=== PATIENT | male | born 1955 | race Caucasian/White ===

== ENCOUNTER 2016-07-21 15:00 | Inpatient (IN) | payer OTHER ==
--- NOTE | 2016-07-21 15:03 | EDPHY ---
HPI/HX/ROS/PE/MDM Narrative: CHIEF COMPLAINT: Seizure, AMS, left-sided weakness. HPI: The patient is a 61-year-old male who presents via EMS for AMS, seizure, and left-sided weakness. Per EMS he developed intermittent expressive aphasia and was taken to Urgent Care by his . In the lobby of Urgent Care he seized and fell. It is unknown if he struck his head. Upon waking he had left-sided weakness and EMS was notified. He has been mostly unresponsive for EMS and intermittently combative. History extremely limited due to AMS. REVIEW OF SYSTEMS: History limited due to patient's clinical condition. PMH: Unknown. SOCIAL HISTORY: . PHYSICAL EXAM: General: Patient is somnolent but arousable to loud voice. ENT: Eyes are normal to inspection. ENT inspection normal. Pupils 4mm and reactive bilaterally. Neck: Normal inspection. Full range of motion. Respiratory: No respiratory distress. Breath sounds normal bilaterally. Cardiovascular: Regular rate and rhythm. Strong peripheral pulses. Abdomen: The abdomen is nontender to palpation. There are no peritoneal signs. There are normal bowel sounds. Back: Normal to inspection. No tenderness to palpation. Skin: Normal color. No rash. Warm and dry. Extremities: Normal appearance. No signs of trauma. Neuro: Somnolent, no gross motor deficitis. Portions of this note were transcribed by an ED scribe. I personally performed the history, physical exam, and medical decision making; and confirm the accuracy of the information in the transcribed note. ED Course: I met EMS on arrival and obtained a report from the concrete pipe plant supervisor. The patient arrived with stable vitals as a stroke alert but was uncooperative and mostly unresponsive on arrival. Given numerous aspects of the history provided by EMS, I canceled the stroke alert. The patient was immediately sent to CT for head imaging. I consulted with the radiologist Dr. Combs immediately after imaging. He reported a large brain tumor present. On reexamination of the patient his is present. She reports that the patient has had transient slurred speech over the past 2 weeks. When she returned from errands this morning he could not move the right side of his face. He did have a seizure when they arrived at Urgent Care. The patient is responsive to painful stimuli at this time but otherwise cannot answer questions well. An IV was established and labs ordered. Chest x-ray, EKG obtained. 1520: Consulted with Dr. Saleh, neurosurgery. He will consult with the patient in the emergency department. 1622: Consulted with Dr. Saleh, neurosurgery, after his assessment. He will admit the patient. Study: CT of the head. Indication: AMS. Results: Left parietal region mass, presumably neoplasm with mild associated mass effect and no evidence for hemorrhage. The study was read by the radiologist, Dr. Combs. I viewed the images myself on the PACS system. EKG was ordered and interpreted by myself. Please see Verastem system for official reading. MDM: This patient presents with altered mental status status post seizure with report of several weeks of neurologic symptoms. Unfortunately, he is found to have a fairly large tumor on noncontrast head CT. He remained hemodynamically stable with a patent airway throughout his emergency department stay. Further care deferred to Neurosurgery team. I personally spent a total of 45 minutes of critical care time in obtaining history, performing a physical exam, bedside monitoring of interventions, collecting and interpreting tests and discussion with consultants but not including time spent performing procedures. This time was exclusive of any involvement by Physician Echometer Engineer. Organ system(s) at risk include: neurologic. Given the unstable nature of patient's presentation, I followed the patient to the CT scanner and remained there throughout the imaging process. - Data Points Laboratory Results: Laboratory Results 07/21/16 15:10 07/21/16 15:10 07/21/16 07/21/16 07/21/16 15:10 15:10 15:10 WBC 9.04 10^3/uL 10^3/uL (3.80-9.50) RBC 4.90 10^6/uL 10^6/uL (4.40-6.38) Hgb 15.8 g/dL g/dL (13.7-17.5) POC Hgb Hct 45.8 % % (40.0-51.0) POC Hct MCV 93.5 fL fL (81.5-99.8) MCH 32.2 pg pg (27.9-34.1) MCHC 34.5 g/dL g/dL (32.4-36.7) RDW 12.3 % % (11.5-15.2) Plt Count 254 10^3/uL 10^3/uL (150-400) MPV 10.1 fL fL (8.7-11.7) Neut % (Auto) 55.1 % % (39.3-74.2) Lymph % (Auto) 34.4 % % (15.0-45.0) [place] % (Auto) 8.3 % % (4.5-13.0) Eos % (Auto) 1.5 % % (0.6-7.6) Baso % (Auto) 0.4 % % (0.3-1.7) Nucleat RBC Rel Count 0.0 % % (0.0-0.2) Absolute Neuts (auto) 4.97 10^3/uL 10^3/uL (1.70-6.50) Absolute Lymphs (auto) 3.11 10^3/uL H 10^3/uL (1.00-3.00) Absolute Monos (auto) 0.75 10^3/uL 10^3/uL (0.30-0.80) Absolute Eos (auto) 0.14 10^3/uL 10^3/uL (0.03-0.40) Absolute Basos (auto) 0.04 10^3/uL 10^3/uL (0.02-0.10) Absolute Nucleated RBC 0.00 10^3/uL 10^3/uL (0-0.01) Immature Gran % 0.3 % % (0.0-1.1) Immature Gran # 0.03 10^3/uL 10^3/uL (0.00-0.10) PT 15.5 SEC H SEC (12.0-15.0) INR 1.23 H (0.83-1.16) APTT 25.2 SEC SEC (23.0-38.0) POC Sodium Sodium 143 mEq/L mEq/L (134-144) POC Potassium Potassium 4.1 mEq/L mEq/L (3.5-5.2) POC Chloride Chloride 103 mEq/L mEq/L (97-110) Carbon Dioxide 12 mEq/l L mEq/l (22-31) Anion Gap 28 mEq/L H mEq/L (8-16) POC BUN BUN 19 mg/dL mg/dL (7-23) Creatinine 1.1 mg/dL mg/dL (0.7-1.3) POC Creatinine Estimated GFR > 60 Glucose 158 mg/dL H mg/dL (70-100) POC Glucose Calcium 9.7 mg/dL mg/dL (8.5-10.4) Troponin I < 0.012 ng/mL ng/mL (0-0.034) 07/21/16 15:07 WBC RBC Hgb POC Hgb 16.0 gm/dL gm/dL (14.5-17.3) Hct POC Hct 47 % % (42.8-50.6) MCV MCH MCHC RDW Plt Count MPV Neut % (Auto) Lymph % (Auto) [place] % (Auto) Eos % (Auto) Baso % (Auto) Nucleat RBC Rel Count Absolute Neuts (auto) Absolute Lymphs (auto) Absolute Monos (auto) Absolute Eos (auto) Absolute Basos (auto) Absolute Nucleated RBC Immature Gran % Immature Gran # PT INR APTT POC Sodium 142 mEq/L mEq/L (134-144) Sodium POC Potassium 3.6 mEq/L mEq/L (3.3-5.0) Potassium POC Chloride 105 mEq/L mEq/L (96-108) Chloride Carbon Dioxide Anion Gap POC BUN 22 mg/dL mg/dL (7-23) BUN Creatinine POC Creatinine 1.1 mg/dL mg/dL (0.8-1.5) Estimated GFR Glucose POC Glucose 160 mg/dL H mg/dL (70-100) Calcium Troponin I Point of Care Test Results: 07/21/16 15:07 POC Sodium 142 POC Potassium 3.6 POC Chloride 105 POC BUN 22 POC Creatinine 1.1 POC Glucose 160 H General Initial Vital Signs: Initial Vital Signs Temperature (C) 36.7 C 07/21/16 15:00 Heart Rate 86 07/21/16 15:00 Respiratory Rate 16 07/21/16 15:00 Blood Pressure 110/75 07/21/16 15:00 O2 Sat (%) 97 07/21/16 15:00 O2 (L/minute) 2 Allergies/Adverse Reactions: No Known Allergies Allergy (Unverified 07/21/16 15:31) Home Medications: Medication Instructions Recorded Gabapentin [Neurontin 300 MG (*)] 300 mg PO TID 07/21/16 Propranolol HCl [Inderal 10mg (*)] 10 mg PO TID 07/21/16 busPIRone [Buspar (*)] 10 mg PO TID 07/21/16 Departure - Departure Disposition: [facility] Acute Clinical Impression: Brain tumor, Seizure Altered mental status Qualifiers: Altered mental status type: unspecified Qualified Code(s): R41.82 - Altered mental status, unspecified Condition: Fair Report Scribed for: Regino Hogue Report Scribed by: Cj Wan Date of Report: 07/21/16 Time of Report: 15:15
[2016-07-21 15:25] LABS: % IMMATURE GRANULYOCYTES 0.3 % (0.0-1.1); ABSOLUTE IMMATURE GRANULOCYTES 0.03 10^3/uL (0.00-0.10); ADD DIFF? NO; ADD MORPH? NO; ATYPICAL LYMPHOCYTE FLAG 0 (0-99); FRAGMENT RBC FLAG 0 (0-99); HEMATOCRIT 45.8 % (40.0-51.0); HEMOGLOBIN 15.8 g/dL (13.7-17.5); LEFT SHIFT FLG 0 (0-99); LIPEMIA HEMOLYSIS FLAG 90 (0-99); MEAN CELL HEMOGLOBIN 32.2 pg (27.9-34.1); MEAN CELL HEMOGLOBIN CONCENTR. 34.5 g/dL (32.4-36.7); MEAN CELL VOLUME 93.5 fL (81.5-99.8); MEAN PLATELET VOLUME 10.1 fL (8.7-11.7); PLATELET CLUMPS FLAG 0 (0-99); PLATELET COUNT 254 10^3/uL (150-400); RED CELL DISTRIBUTION WIDTH 12.3 % (11.5-15.2)
[2016-07-21 15:26] LABS: ADD SCAN? NO
--- NOTE | 2016-07-21 15:33 | CPEKG ---
Heart Rate: 85 RR Interval: 706 P-R Interval: 168 QRSD Interval: 92 QT Interval: 380 QTC Interval: 452 P Armbrust: 76 QRS Armbrust: 61 T Wave Armbrust: 63 EKG Severity - NORMAL ECG - EKG Impression: SINUS RHYTHM EKG Impression: Agree with above Electronically Signed By: Avelino Du 23-Jul-2016 18:15:38
[2016-07-21 15:37] LABS: APTT 25.2 SEC (23.0-38.0); INR 1.23 (0.83-1.16); PROTIME(PATIENT) 15.5 SEC (12.0-15.0)
[2016-07-21 15:40] LABS: ANION GAP 28 mEq/L (8-16); CALCIUM 9.7 mg/dL (8.5-10.4); CARBON DIOXIDE 12 mEq/l (22-31); CHLORIDE 103 mEq/L (97-110); CREATININE 1.1 mg/dL (0.7-1.3); GLOMERULAR FILTRATION RATE > 60; GLUCOSE 158 mg/dL (70-100); POTASSIUM 4.1 mEq/L (3.5-5.2); SODIUM 143 mEq/L (134-144)
[2016-07-21 15:52] LABS: TROPONIN I < 0.012 ng/mL (0-0.034)
[2016-07-21] MEDS ORDERED: MAGNESIUM HYDROXIDE 30 ML UDCUP PO PRN (16:03)
[2016-07-21] MEDS ORDERED: ONDANSETRON 4 MG/2 ML VIAL IVP PRN (16:03)
[2016-07-21] MEDS ORDERED: LACTULOSE 20 GM/30 ML UDCUP PO PRN (16:03)
[2016-07-21] MEDS ORDERED: POLYETHYLENE GLYCOL 3350 17 GM PKT PO PRN (16:03)
[2016-07-21] MEDS ORDERED: ACETAMINOPHEN 325 MG TAB PO PRN (16:03)
[2016-07-21] MEDS ORDERED: MAG HYDROX/AL HYDROX/SIMETH 30 ML UDCUP PO PRN (16:03)
[2016-07-21] MEDS ORDERED: BISACODYL 10 MG SUPP PR PRN (16:03)
[2016-07-21] MEDS ORDERED: diphenhydrAMINE 25 MG CAP PO PRN (16:03)
[2016-07-21] MEDS ORDERED: DEXAMETHASONE 10 MG/ML VIAL IVP ONE (16:21)
--- NOTE | 2016-07-21 16:44 | GHP ---
[f rep st] HISTORY AND PHYSICAL DATE OF ADMISSION: 07/21/2016 REASON FOR ADMISSION: New diagnosis of brain tumor. The patient was seen evaluated approximately 4 :00 p.m. on 07/21/2016 in the [facility] Emergency Department. HPI: The patient is a 61-year-old man who presented via EMS for some altered mental status, possibl y a seizure, and supposed left-sided weakness. He apparently over the last month has been developin g worsening expressive aphasia, which has been markedly worse over the past week. [facility] . He may have had a seizure in the lobby and fell down, and had a loss of consciousness. He did seem to have some postictal confusion and combativeness. He also may have had some left-sided weakness at that time per EMS. The remainder of his history was difficult to a scertain at that time. Now when I am seeing him, he does not have any complaints of headaches. He does clearly have expressive aphasia and some dysarthria with mild right-sided drift, but otherwise no left-sided weakness. He has no further complaints. [facility], which shows a mass with surrounding vasogenic edema in the left frontal region near Broca's area . No contrast scans have been done yet. There is very minimal midline shift, but there is signific ant mass effect from the mass and vasogenic edema. REVIEW OF SYSTEMS: A 10-point review of systems is negative other than that described above in the HPI. Specifically, he denies fevers, chills, nausea, vomiting, shortness of breath, abdominal pain. PAST MEDICAL HISTORY: Anxiety. PAST SURGICAL HISTORY: None. SOCIAL HISTORY: The patient is . He is a lifelong nonsmoker. Drinks only social alcohol an d denies other drug use. FAMILY HISTORY: Negative for any brain malignancy or other cancer. PHYSICAL EXAM: VITAL SIGNS: Currently, he is afebrile with a temperature of 36.7, heart rate is 86 , respiratory rate 16, blood pressure is 110/75, sats are 97% on room air. NEURO: He is awake, gypsy rt, and oriented x3. He does have expressive aphasia with some degree of difficulty with repetition as well. He does have significant word-finding difficulties, but follows commands briskly. His pu pils are equal, round, reactive to light. His extraocular movements are intact. Face is symmetric. His tongue is midline. He has 5/5 strength at the deltoids, biceps, triceps, coffee urn attendant and finger exte nsion bilaterally. There is a slight right-sided pronator drift. He has 5/5 strength at the hip fl exors, knee flexors, extensors and plantar and dorsiflexion bilaterally. His sensation is intact to light touch and pain. Deep tendon reflexes are normal. CHEST: Clear to auscultation bilaterally. HEART: Regular rate and rhythm. No rubs, murmurs, or gallops. ABDOMEN: Soft, nontender, nondis tended with active bowel sounds in all 4 quadrants. IMAGING REVIEW: CT reveals a mass measuring what appears to be roughly about 3.5 cm in the left fro ntal region, with some surrounding vasogenic edema. There is no significant midline shift. No sign of hemorrhage. LAB REVIEW: White count is 9.0, hemoglobin 15.8, hematocrit is 45.8, platelet count is 254,000, sod ium is 143, potassium 4.1, BUN is 19, creatinine 1.1, glucose is 158. PT is 15.5, INR 1.2, PTT is 2 5.2. 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 He may have had a seizure at Urgent Care, an d worsening aphasia over the past month. CT shows a mass lesion in the left frontal region near Bro ca's area with some surrounding vasogenic edema and mass effect. This is presumably a neoplasm, and I explained this to the family. Our next step will be to get an MRI with contrast and stealth prot ocol to better see the anatomy and determine what kind of tumor this may be. After that, we can dec hope about further metastatic workup with a CT chest, abdomen, pelvis if this appears to be necessary . He is going to be given 10 mg of Decadron in the Emergency Department, followed by 4 q.6h IV for the vasogenic edema. We will maintain him on Keppra 1 g twice daily. I explained to them that the likely next steps would include biopsy and/or resection, depending on the results of the MRI scan. I do not think it is likely to be infectious in origin, but we will continue to monitor his vital si gns for any signs of fevers or infection. I explained all this to the family, and they are in agree ment with this assessment and plan. /[id number]/MODL
[2016-07-21] MEDS ORDERED: GADOBUTROL 10 ML VIAL IVP ONE (16:58)
[2016-07-21] MEDS ORDERED: *PHM DO NOT USE-DEXAMETHASONE 0.2 MG/ML IV PED/NEWBORN SYR IV SCH (18:00)
[2016-07-21] MEDS: DEXAMETHASONE 4 MG/ML VIAL IVP SCH ×2 (19:15→23:34)
[2016-07-21] MEDS ORDERED: levETIRAcetam 500 MG in NS 100 ML IV SCH (21:00)
[2016-07-21] MEDS: NS W/ 20 KCl/L 1,000 ML IV SCH (21:40)
[2016-07-21] MEDS: levETIRAcetam 1,000 MG in NS 100 ML IV SCH (21:40)
[2016-07-21] MEDS: GABAPENTIN 300 MG CAP PO SCH (21:43)
[2016-07-21] MEDS: PROPRANOLOL HCL 10 MG TAB PO SCH (21:43)
[2016-07-21] MEDS: HEPARIN 5,000 UNIT/0.5 ML SYR SC SCH (21:45)
[2016-07-21] MEDS: SENNOSIDES/DOCUSATE SODIUM TAB PO SCH (23:26)
[2016-07-21] MEDS: busPIRone 10 MG TAB PO SCH (23:34)
[2016-07-22] MEDS: DEXAMETHASONE 4 MG/ML VIAL IVP SCH ×4 (05:48→23:39)
--- NOTE | 2016-07-22 09:20 | NEUSURGPN ---
Assessment/Plan: 61 yo male presenting with AMS and aphasia found to have left frontal mass with surrounding edema. -MRI w and wo contrast performed and shows left frontal heterogeneous mass with surrounding edema consistent with possible GBM. -Dr. Saleh and I will speak wtih the patient and his about these findings later this afternoon as well as possible surgical plans for tomorrow. Surgery would involve an awake craniotomy due to the location of this tumor and close proximity to Broca's. -Tentatively on the schedule for 7:15 tomorrow but need to speak with anesthesia regarding needs for awake procedure. 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 Does not remember meeting Dr. Saleh or their discussion. Objective: NAD, VSS Speech- clear and fluent most of the time, speech still sometimes garbled/less clear. Mental status-oriented to person, time, some confusion about recent events and has some short term memory issues CN II-XII grossly intact No droop Negative pronator drift BUE/BLE 08/30= - Physician Discussed Patient with Dr.: Saleh Neurosurgery Physical Exam - Vitals, I&O, Labs I and O 07/21/16 07/22/16 07/23/16 05:59 05:59 05:59 Intake Total 1038 Output Total 400 Balance 638 Weight 84 kg Intake: Oral (ml) 100 IV Infused (ml) 938 NS W/ 20 KCl/L 1,000 ml @ 788 100 mls/hr IV CONT LUCIANO Rx#:[id number] levETIRAcetam 1,000 mg In 100 Ns 100 ml @ 420 mls/hr IV BID LUCIANO Rx#:[id number] Output: Urine (ml) 400 Toilet 400 Vital Signs Temp Pulse Resp BP Pulse Ox 37.1 C 71 16 141/79 H 95 07/22/16 08:00 07/22/16 08:00 07/22/16 08:00 07/22/16 08:00 07/22/16 08:00 ICD10 Worksheet Patient Problems: Problems Problem Status Onset Altered mental status Acute Brain tumor Acute Seizure Acute
[2016-07-22] MEDS: levETIRAcetam 1,000 MG in NS 100 ML IV SCH ×2 (09:29→20:03)
[2016-07-22] MEDS: HEPARIN 5,000 UNIT/0.5 ML SYR SC SCH ×2 (09:30→20:03)
[2016-07-22] MEDS: busPIRone 10 MG TAB PO SCH ×3 (09:30→20:04)
[2016-07-22] MEDS: NS W/ 20 KCl/L 1,000 ML IV SCH (09:30)
[2016-07-22] MEDS: GABAPENTIN 300 MG CAP PO SCH ×3 (09:30→20:04)
[2016-07-22] MEDS: SENNOSIDES/DOCUSATE SODIUM TAB PO SCH ×2 (09:30→20:19)
[2016-07-22] MEDS: PROPRANOLOL HCL 10 MG TAB PO SCH ×3 (09:31→20:04)
[2016-07-22] MEDS: LORazepam 1 MG TAB PO PRN (16:30)
[2016-07-22] MEDS: ALPRAZolam 0.5 MG TAB PO PRN (20:03)
[2016-07-23] MEDS: DEXAMETHASONE 4 MG/ML VIAL IVP SCH ×3 (06:05→18:26)
--- NOTE | 2016-07-23 09:15 | NEUSURGPN ---
Assessment/Plan: 61 yo male presenting with AMS and aphasia found to have left frontal mass with surrounding edema. -MRI w and wo contrast performed and shows left frontal heterogeneous mass with surrounding edema consistent with possible GBM. -Dr. Saleh and I had a long discussion regarding MRI findings, probable prognosis and treatment options. Patient leaning towards surgery which would involve awake craniotomy for motor and speech mapping due to tumor location. -Surgery time held for tomorrow at 0915 at [facility] but patient may want t go home for a few days and do it next week. Will look at OR times available for this and would need to make sure surgery gets approved by insurance as outpatient. -If patient decides on surgery tomorrow, will need to be NPO after midnight, preop orders entered and consents signed -Oncology consulted and Dr. 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 Saleh as well this morning Subjective: Patient states speech is continuing to get better. Is leaning towards surgical option for treatment. Denies any weakness. Objective: NAD, VSS Speech- clear and fluent most of the time, speech still sometimes garbled/less clear. Mental status-oriented to person, time, some confusion about recent events and has some short term memory issues CN II-XII grossly intact No droop Negative pronator drift BUE/BLE 5/5= Urinary Catheter in Place: No - Physician Discussed Patient with Dr.: Saleh Patient Seen by Dr.: Saleh Neurosurgery Physical Exam - Vitals, I&O, Labs I and O 07/22/16 07/23/16 07/24/16 05:59 05:59 05:59 Intake Total 1038 1000 Output Total 400 Balance 638 1000 Weight 84 kg Intake: Oral (ml) 100 IV Infused (ml) 938 1000 NS W/ 20 KCl/L 1,000 ml @ 788 900 100 mls/hr IV CONT LUCIANO Rx#:[id number] levETIRAcetam 1,000 mg In 100 100 Ns 100 ml @ 420 mls/hr IV BID LUCIANO Rx#:[id number] Output: Urine (ml) 400 Toilet 400 Other: Number of Voids Toilet 1 Vital Signs Temp Pulse Resp BP Pulse Ox 36.9 C 56 L 18 136/67 H 97 07/23/16 08:15 07/23/16 08:15 07/23/16 08:15 07/23/16 08:15 07/23/16 08:15 ICD10 Worksheet Patient Problems: Problems Problem Status Onset Altered mental status Acute Brain tumor Acute Seizure Acute
[2016-07-23] MEDS: levETIRAcetam 1,000 MG in NS 100 ML IV SCH ×2 (10:08→20:15)
[2016-07-23] MEDS: busPIRone 10 MG TAB PO SCH ×3 (10:13→20:16)
[2016-07-23] MEDS: SENNOSIDES/DOCUSATE SODIUM TAB PO SCH ×2 (10:13→21:04)
[2016-07-23] MEDS: HEPARIN 5,000 UNIT/0.5 ML SYR SC SCH (10:13)
[2016-07-23] MEDS: GABAPENTIN 300 MG CAP PO SCH ×3 (10:13→20:15)
[2016-07-23] MEDS: PROPRANOLOL HCL 10 MG TAB PO SCH ×3 (10:15→20:15)
[2016-07-23] MEDS: ALPRAZolam 0.5 MG TAB PO PRN ×2 (14:39→20:16)
--- NOTE | 2016-07-23 14:47 | GCON ---
[f rep st] CONSULTATION MEDICAL ONCOLOGY CONSULTATION REPORT. DATE OF CONSULTATION: 07/23/2016 REFERRING PHYSICIAN: Matteo Saleh MD REASON FOR CONSULTATION: A gentleman with newly diagnosed left frontal mass consistent with high-gr yo brain tumor at initial presentation. Information supplied by patient and his at the bedside. HISTORY OF PRESENT ILLNESS: The patient is a pleasant 61-year-old white male with no previous histo ry of malignancy who presented over the past month or so with mild subtle aphasia on a temporary bas is that gradually became more prominent and developed into ongoing slurred speech. He also noted so me right cheek numbness about 8 days ago, some focal weakness, and seizure activity leading to hospi talization on July 20. He was hospitalized by the emergency department of [facility], and an initial head CT in the emergency department showed a left frontal tumor mass co nsistent with a primary brain tumor. He has had a subsequent brain MRI which shows the appearance o f a brain tumor in the left frontal region measuring 5.8 x 3.8 x 3.4 cm with a moderate amount of funk rrounding vasogenic edema and a 4-5 mm [id number] shift. The tumor is in the area near Broca are a. The patient has been placed on anticonvulsant therapy and steroids and has been seen by the neur osurgical service with advice provided concerning neurosurgical resection of the mass and/or biopsy depending upon neurosurgical findings, including mapping of the tumor's local at time of surgery. The patient is now seen preoperatively with his regarding the medical oncology perspective of t his tumor. There is no family history of malignancy in this patient. He has had no history of brain injury. The patient has maintained good health, and he has a remote history of alcohol abuse, resolved in 15 07, with now just occasional and modest alcohol intake in the past several years. 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 ALLERGIES: None reported. SOCIAL HISTORY: The patient is to his , and he was born in [facility] and moved to [facility] 40 years ago. He and his have a single child, a 24-year-old daughter who lives in the [place] area. 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 There is no history of tobacco use. PAST SURGICAL HISTORY: Bilateral herniorrhaphy at approximately age 3. PAST MEDICAL HISTORY: No chronic medical conditions. FAMILY HISTORY: As noted reveals no history of malignancy. REVIEW OF SYSTEMS: As noted above. 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 Otherwise, he has had no cardiac, pulmonary, infectiou s, vascular, thrombotic, hematologic, hemostatic, lymphatic, GI, , or skeletal symptoms with the e xception of the above presentation. PHYSICAL EXAMINATION: GENERAL: The patient is seen with his at the bedside. He is lying at a 20-degree angle. He is alert, comfortable, lucid, and coherent. His speech is slightly slurred, b ut he is able to express complicated concepts easily and has intact cognitive abilities. He is movi ng all 4 extremities without difficulty. HEENT: No facial asymmetry. Sclerae anicteric. Oral muc sade intact. NECK: No adenopathy in the neck. LUNGS: Ibrahim clear. CARDIAC: Regular rhythm with out S3 or S4. ABDOMEN: Soft without tenderness, mass, or HSM. Bowel sounds normal. Abdomen nondi stended and nontender. EXTREMITIES: Without peripheral edema. SKIN: Intact. NEUROLOGIC: Reflex es are somewhat brisk on the left side. LABORATORY DATA: Sodium 143, CO2 12, potassium 4.2, BUN 19, creatinine 1.1, glucose 158. Platelet count 254, hemoglobin 15.8, white count 9.04. Chest x-ray shows no identified mass, effusion, or infiltrate. EKG shows no specific abnormality. IMPRESSION: Left frontal region brain tumor based upon MRI characteristics, presenting as a heterog eneous bilobed mass by imaging that has led to progressive aphasia and new onset seizure. COMMENTS: I have a prolonged conversation with the patient and his regarding his presentation, diagnosis, opportunity for first-line treatment with surgery and need for somewhat urgent neurosurg ical intervention. The possibility of significant improvement and prognosis has been reviewed today in our discussion. The patient is well aware that he could have significant permanent speech defic it and/or other deficits from surgery, but also understands that his prognosis is significantly impr omar with the attempt at near total or subtotal or total neurosurgical resection. The patient was informed that if this is a primary aggressive astrocytoma, as in a glioblastoma mult iforme, additional treatment would include radiation therapy after sufficient neurosurgical recovery , usually treated concomitantly with an oral chemotherapy agent called temozolomide. Other options may become more clear as the tumor characteristics are identified, including MGMT activity and tumor cytogenetics. This additional information may help to identify potential wheat combine driver mutations to be ut ilized for further treatment. The patient and his asked many relevant questions, and the patient expressed his desire to allo w optimal treatment outcome but expressed his concern with having a permanent end-of-life neurosurgi laurie deficit that he is reluctant to accept. He understands both the risks and benefits and is looki ng forward to moving on with neurosurgical intervention as soon as possible. Our service will follow during this hospitalization and to help coordinate postop treatment when dejah jagjit. /[id number]/MODL
[2016-07-24] MEDS: DEXAMETHASONE 4 MG/ML VIAL IVP SCH ×4 (00:05→18:58)
[2016-07-24] MEDS: ALPRAZolam 0.5 MG TAB PO PRN (04:54)
[2016-07-24] MEDS ORDERED: ceFAZolin 2 GM/DEXTROSE 100 ML IV ONE (07:00)
[2016-07-24] MEDS: levETIRAcetam 1,000 MG in NS 100 ML IV SCH ×2 (07:21→21:27)
[2016-07-24] MEDS ORDERED: THROMBIN (BOVINE) 5,000 UNIT VIAL TP ONE (07:31)
[2016-07-24] MEDS ORDERED: SURGIFLO MATRIX KIT WITH THROMBIN TP ONE ×2 (07:31→11:17)
[2016-07-24] MEDS ORDERED: AVITENE POWDER 1 GM JAR TP ONE (07:32)
[2016-07-24] MEDS ORDERED: BUPIVACAINE/EPI 0.25% 30 ML SDV ONE ×2 (07:32→09:33)
[2016-07-24] MEDS ORDERED: BACITRACIN 50,000 UNITS/10 ML SYR IRR ONE (07:33)
[2016-07-24] MEDS: PROPRANOLOL HCL 10 MG TAB PO SCH ×3 (08:29→21:28)
[2016-07-24] MEDS: busPIRone 10 MG TAB PO SCH ×3 (08:29→21:28)
[2016-07-24] MEDS: GABAPENTIN 300 MG CAP PO SCH ×3 (08:29→21:27)
[2016-07-24] MEDS: SENNOSIDES/DOCUSATE SODIUM TAB PO SCH ×2 (08:29→21:28)
[2016-07-24] MEDS ORDERED: GENTAMICIN SULFATE 80 MG/2 ML VIAL ONE (08:59)
[2016-07-24] MEDS ORDERED: LIDOCAINE 1% 30 ML SDV ONE (09:29)
[2016-07-24] MEDS ORDERED: MIDAZOLAM 2 MG/2 ML VIAL ONE (09:44)
[2016-07-24] MEDS ORDERED: fentaNYL 250 MCG/5 ML INJ ONE (09:46)
[2016-07-24] MEDS ORDERED: PROPOFOL/EMULSION 500 MG/50 ML BOTTLE IV ONE (09:46)
[2016-07-24] MEDS ORDERED: DEXMEDETOMIDINE HCL 200 MCG/2 ML VIAL IV ONE (09:50)
[2016-07-24] MEDS ORDERED: NS IV ONE (10:00)
[2016-07-24] MEDS ORDERED: FOSPHENYTOIN IV ONE (10:00)
[2016-07-24] MEDS ORDERED: SUGAMMADEX SODIUM 200 MG/2 ML VIAL IVP ONE (11:12)
[2016-07-24] MEDS ORDERED: epHEDrine SULFATE 10 MG/ML SYR ONE (11:13)
[2016-07-24] MEDS ORDERED: REMIFENTANIL HCL 1 MG VIAL ONE (11:20)
[2016-07-24] MEDS ORDERED: PROPOFOL 200 MG/20 ML VIAL ONE (12:26)
[2016-07-24] MEDS ORDERED: LABETALOL HCL 50 MG/10 ML SYR ONE (13:05)
[2016-07-24] MEDS ORDERED: fentaNYL 100 MCG/2 ML INJ ONE (13:18)
--- NOTE | 2016-07-24 13:51 | GOP ---
[f rep st] OPERATIVE REPORT DATE OF OPERATION: 07/24/2016 SURGEON: Matteo Saleh MD SOCIAL WORK PROFESSOR: Tena Cuellar, AVERY ANESTHESIA: General endotracheal plus local. 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 PROCEDURE PERFORMED: 1. Left frontal craniotomy for biopsy of brain tumor. 2. Aborted attempt for a gross total resection of left frontal brain tumor. 3. Intraoperative motor and speech mapping with awake craniotomy. 4. Stealth stereotactic neuronavigation for volumetric resection. 5. Use of the operating microscope. FINDINGS: Aborted craniotomy due to the patient's inability to tolerate the awake portion. SPECIMENS: Left frontal brain tumor for permanent pathology. ESTIMATED BLOOD LOSS: 50 cc. INDICATIONS: The patient is a 61-year-old man who presented with motor aphasia over the weekend. H is imaging showed a large contrast enhancing mass with central necrosis in the left frontal lobe anahi y near the Broca area and just anterior to his motor area. After much discussion, we decided to pro ceed with an awake craniotomy for resection of this tumor with speech and motor mapping. Much discu ssion was had with the patient regarding this awake craniotomy, and the potential pitfalls prior to the procedure. DESCRIPTION OF PROCEDURE: Informed consent was obtained from the patient. The patient was brought to the operating room, was placed in supine position on the operating table. A formal time-out was performed, identifying the patient by name, medical record number, and date of . Preoperative antibiotics were given. The endotracheal tube was placed, and general endotracheal anesthesia was s moothly induced. The patient's head was then placed in the Velasco pins, and a full block of the s upraorbital and temporal cutaneous nerves was done using a mixture 1:1 of 1% lidocaine and 0.25% Mar marco with epinephrine. More local anesthetic was placed to the site of the pins. The Stealth unit was then registered to the scalp using known surface landmarks and checked for accuracy. The Steal th was then used to plan a reverse question-shimon style craniotomy incision that spanned a segment la rger than the tumor for the intraoperative mapping. At this point, the head was then prepped and dr aped in the normal sterile fashion. Lidocaine was also injected in the site of the incision, and th e skin incision was then made using a 10 blade. The subcutaneous tissues were dissected using monop olar electrocautery, and Mika clips were placed for hemostasis. The temporalis fascia and muscle w as then opened in line with the incision, and a single myocutaneous flap was retracted anteriorly. The Stealth was again used to localize the area of the tumor and the surrounding tissues, and a larg e, roughly 8 x 5 cm, craniotomy flap was planned. 2 bur holes were placed, 1 anteriorly and 1 poste riorly, and then this was connected using a craniotome. Dural tack-up stitches were placed. All bl eeding was controlled with bipolar electrocautery and Gelfoam. At this point, the dura was opened i n a cruciate fashion, exposing the brain beneath. One discolored gyrus was mapped as the area that was coming to the surface, and this was confirmed with the Stealth. At this point, we then used a 4 contact strip electrode to map the motor cortex posteriorly using the phase reversal. We were able to get good signals. Next, we used bipolar stimulation and the EMG electrodes which had been place d preoperatively, to further map the motor cortex. We were able to get good signals, and the motor cortex we mapped was consistent with what we would have expected based on the imaging. Next, we beg an the process of waking the patient up for language mapping, and while he was breathing on his own and able to be extubated, he was moving all 4 extremities, but was not speaking. He then became olga lidia tated and removed himself from the pins by sitting up. His head was carefully supported, and the pi ns were removed. At this point, I had to have the anesthesiologist further sedate the patient becau se of his agitation. We placed the head then on a horseshoe headrest and discussed how to proceed. Given that he was no longer in pins and we no longer had stereotactic navigation, I did not feel th at it would be prudent to resect the tumor without the head being secured in an eloquent area such a s this. Therefore, we elected to abort the further attempt at the awake craniotomy with language ma pping at this point. The area that had been previously mapped where the tumor came to the surface I did make a small corticectomy and saw the tumor tissue beneath the surface. Several biopsies of th is were taken, and these were sent for permanent pathology. The bleeding at the biopsy site was con trolled with bipolar electrocautery, and a piece of Surgicel was placed over the biopsy site. At th is point, the wound was copiously irrigated using gentamicin irrigation. The dura was closed using interrupted 4-0 Nurolon. The craniotomy flap was plated back in place using Synthes titanium plates and screws. The wound was again copiously irrigated using bacitracin irrigation. The temporalis m uscle and fascia was closed using interrupted 2-0 Vicryl. The galea was closed using interrupted 2- 0 Vicryl. The skin was closed using a running 4-0 Monocryl. The patient was then awakened again in the operating room, where he was transferred to the PACU in stable condition. The pin sites were c hecked, and there was no laceration on the head. COUNTS: All sponge and needle counts were correct at the end of the case. COMPLICATIONS: The patient's inability to tolerate the language mapping portion of the procedure, c ausing of the further resection. DRAINS: There were no drains. /[id number]/MODL
[2016-07-24] MEDS ORDERED: METHOCARBAMOL 750 MG TAB PO PRN (14:13)
--- NOTE | 2016-07-24 14:29 | POSTOPPROG ---
Post Op Note Date of Operation: 07/24/16 Surgeon: Matteo Saleh Hvac Technician: Tena Cuellar Anesthesia: GET(General Endotracheal) Pre-op Diagnosis: Left frontal brain tumore Post-op Diagnosis: same Procedure: Left frontal craniotomy for brain biopsy Inf/Abcess present in the surg proc area at time of surgery?: No Depth: Organ Space SOAP Progress Note Assessment/Plan: S: Patient waking up in PACU, stable O: NAD, VSS Speech dysarthric still same as preop PERRL, EOMI CN II-XII grossly intact TABOR X4 Incision c/d/i-dressed with head wrap and baci A/P:61 yo male presenting with AMS and aphasia found to have left frontal mass with surrounding edema. S/p Left frontal craniotomy for biopsy. Was not able to get full resection today as patient was too agitated upon waking up for motor and speech mapping and pulled out of pins. 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 Saleh in PACU 07/24/16 14:23 Objective: Vital Signs Temp Pulse Resp BP Pulse Ox 36.4 C 59 L 10 L 143/81 H 92 07/24/16 13:21 07/24/16 13:21 07/24/16 13:55 07/24/16 13:52 07/24/16 13:52 07/23/16 07/24/16 07/25/16 05:59 05:59 05:59 Intake Total 1000 1800 Output Total 1250 Balance 1000 550 PT 15.5 SEC (12.0-15.0) H 07/21/16 15:10 INR 1.23 (0.83-1.16) H 07/21/16 15:10
[2016-07-24] MEDS: NS W/ 20 KCl/L 1,000 ML IV SCH ×2 (14:34)
[2016-07-24] MEDS: ALPRAZolam 0.25 MG TAB PO PRN (20:11)
[2016-07-25] MEDS: DEXAMETHASONE 4 MG/ML VIAL IVP SCH ×5 (00:16→21:11)
[2016-07-25] MEDS: NS W/ 20 KCl/L 1,000 ML IV SCH (00:20)
[2016-07-25] MEDS: LORazepam 1 MG TAB PO PRN ×2 (00:27→21:14)
[2016-07-25 05:14] LABS: HEMATOCRIT 37.7 % (40.0-51.0); HEMOGLOBIN 13.5 g/dL (13.7-17.5); MEAN CELL HEMOGLOBIN 32.2 pg (27.9-34.1); MEAN CELL HEMOGLOBIN CONCENTR. 35.8 g/dL (32.4-36.7); RED BLOOD CELL COUNT 4.19 10^6/uL (4.40-6.38); RED CELL DISTRIBUTION WIDTH 12.2 % (11.5-15.2)
[2016-07-25 05:36] LABS: ANION GAP 8 mEq/L (8-16); CALCIUM 8.7 mg/dL (8.5-10.4); CARBON DIOXIDE 24 mEq/l (22-31); CHLORIDE 109 mEq/L (97-110); CREATININE 0.7 mg/dL (0.7-1.3); GLOMERULAR FILTRATION RATE > 60; GLUCOSE 110 mg/dL (70-100); POTASSIUM 4.6 mEq/L (3.5-5.2); SODIUM 141 mEq/L (134-144)
[2016-07-25] MEDS: ALPRAZolam 0.25 MG TAB PO PRN ×3 (05:40→22:41)
[2016-07-25] MEDS: levETIRAcetam 1,000 MG in NS 100 ML IV SCH ×2 (09:24→21:15)
[2016-07-25] MEDS: busPIRone 10 MG TAB PO SCH ×3 (09:25→22:41)
[2016-07-25] MEDS: GABAPENTIN 300 MG CAP PO SCH ×3 (09:25→21:15)
[2016-07-25] MEDS: OXYCODONE/APAP 5/325 TAB PO PRN ×2 (09:25→16:19)
[2016-07-25] MEDS: PROPRANOLOL HCL 10 MG TAB PO SCH ×3 (10:22→22:43)
--- NOTE | 2016-07-25 12:32 | NEUSURGPN ---
Assessment/Plan: S: Patient is doing ok this morning, feels "foggy". No weakness in arms, legs. O: NAD, VSS Speech dysarthric still same as preop PERRL, EOMI CN II-XII grossly intact TABOR X4 Incision c/d/i-dressed with head wrap and baci A/P:61 yo male presenting with AMS and aphasia found to have left frontal mass with surrounding edema. S/p Left frontal craniotomy for biopsy. Was not able to get full resection as patient was too agitated upon waking up for motor and speech mapping and pulled out of pins. 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 Saleh 07/24/16 14:23 Catheter Insertion Date: 07/24/16 - Physician Discussed Patient with Dr.: Saleh Neurosurgery Physical Exam - Vitals, I&O, Labs I and O 07/24/16 07/25/16 07/26/16 05:59 05:59 05:59 Intake Total 3416 Output Total 2785 Balance 631 Intake: Oral (ml) 0 IV Intake (ml) 3016 IV Infused (ml) 400 NS W/ 20 KCl/L 1,000 ml @ 400 100 mls/hr IV CONT LUCIANO Rx#:[id number] Output: Urine (ml) 2735 Catheter 2735 Estimated Blood Loss (ml) 50 Other: Intake Quantity Yes Yes Sufficient Vital Signs Temp Pulse Resp BP Pulse Ox 36.8 C 100 25 H 129/61 H 91 L 07/25/16 01:00 07/25/16 10:00 07/25/16 10:00 07/25/16 10:00 07/25/16 10:00 Laboratory Results 07/25/16 05:00 07/25/16 05:00 ICD10 Worksheet Patient Problems: Problems Problem Status Onset Altered mental status Acute Brain tumor Acute Seizure Acute
[2016-07-25] MEDS: SENNOSIDES/DOCUSATE SODIUM TAB PO SCH ×2 (12:55→21:15)
[2016-07-26] MEDS: OXYCODONE/APAP 5/325 TAB PO PRN (05:13)
[2016-07-26] MEDS: DEXAMETHASONE 4 MG/ML VIAL IVP SCH (05:14)
[2016-07-26] MEDS: ALPRAZolam 0.25 MG TAB PO PRN (06:17)
[2016-07-26 07:29] VITALS: RESP 18
[2016-07-26] MEDS: GABAPENTIN 300 MG CAP PO SCH (08:25)
[2016-07-26] MEDS: SENNOSIDES/DOCUSATE SODIUM TAB PO SCH (08:25)
[2016-07-26] MEDS: busPIRone 10 MG TAB PO SCH (08:25)
--- NOTE | 2016-07-26 08:30 | NEUSURGPN ---
Assessment/Plan: A/P:61 yo male presenting with AMS and aphasia found to have left frontal mass with surrounding edema. S/p Left frontal craniotomy for biopsy. Was not able to get full resection as patient was too agitated upon waking up for motor and speech mapping and pulled out of pins. -Head CT was stable -Advance diet as tolerated -May go back in next Friday to finish resection- Dr Saleh spoke with patient yesterday. Plan to be seen in office Friday. -Pathology pending -Neuro checks -PT/OT/MALTSTER -Continue Keppra, increase decadron to 4mg Q6hrs -Can transfer to floor -Will need new Stealth MRI again if we go back next week -Likely DC home later today if cleared by therapies -Discussed with Dr. Saleh Subjective: Pt resting in bed, concerned about his speech. Has had some headache. Objective: AAOx3 NAD VSS Incision cdi MAEx4 Motor 5-/5 RUE/RLE, 5/5 LUE/LLE Some slurred/garbled speech slight R facial droop Urinary Catheter in Place: No Catheter Insertion Date: 07/24/16 - Physician Discussed Patient with Dr.: Saleh Neurosurgery Physical Exam - Vitals, I&O, Labs I and O 07/25/16 07/26/16 07/27/16 05:59 05:59 05:59 Intake Total 3416 300 Output Total 2785 850 Balance 631 -550 Intake: Oral (ml) 0 300 IV Intake (ml) 3016 IV Infused (ml) 400 NS W/ 20 KCl/L 1,000 ml @ 400 100 mls/hr IV CONT LUCIANO Rx#:[id number] Output: Urine (ml) 2735 850 Catheter 2735 Toilet 850 Estimated Blood Loss (ml) 50 Other: Intake Quantity Yes Sufficient Number of Voids Toilet 1 Bladder Scan Volume (ml) Catheter 632 Vital Signs Temp Pulse Resp BP Pulse Ox 36.6 C 58 L 18 139/78 H 95 07/26/16 07:24 07/26/16 07:24 07/26/16 07:24 07/26/16 07:24 07/26/16 07:24 Laboratory Results 07/25/16 05:00 07/25/16 05:00 ICD10 Worksheet Patient Problems: Problems Problem Status Onset Altered mental status Acute Brain tumor Acute Seizure Acute
[2016-07-26] MEDS ORDERED: levETIRAcetam 500 MG TAB PO SCH (09:00)
[2016-07-26] MEDS: PROPRANOLOL HCL 10 MG TAB PO SCH (10:45)
[2016-07-26] MEDS ORDERED: DEXAMETHASONE 4 MG TAB PO SCH (12:00)
[2016-07-26 12:04] VITALS: BP 108/68; PULSE 69; TEMP 98.9; O2SAT 96
== END 2016-07-26 15:04 | disposition home or self-care (01) | DRG 25 ==
LOC: EDBD 15:00 → F3N 17:18 → F2N 07-24 08:32 → F3N 07-25 14:58
PROVIDERS: ADMIT Neurological Surgery; ATTEND Neurological Surgery
DX: C71.1 Malignant neoplasm of frontal lobe (principal); R47.01 Aphasia; R47.1 Dysarthria and anarthria; G93.6 Cerebral edema; Z53.8 Procedure and treatment not carried out for other reasons; R45.1 Restlessness and agitation
CPT/HCPCS: 82947-QW; 92507-GN; 92523-GN; 92610-GN; 97161-GP; 97165-GO; A9585; C1713; J0690; J1100; J1953; J2250; J2704; J3010; Q2009

== ENCOUNTER 2016-08-08 08:48 | Inpatient (IN) | payer OTHER ==
[~2016-08-08 08:48] MED LIST: ceFAZolin 2 GM/DEXTROSE 100 ML IV ONE
[2016-08-08] MEDS ORDERED: LIDOCAINE 1% 5 ML SDV ONE (09:28)
[2016-08-08] MEDS ORDERED: GADOBUTROL 10 ML VIAL IVP ONE (09:36)
[2016-08-08] MEDS ORDERED: MANNITOL 20% 100 GM/500 ML BAG IV ONE (10:22)
[2016-08-08] MEDS ORDERED: AVITENE POWDER 1 GM JAR TP ONE (10:22)
[2016-08-08] MEDS ORDERED: THROMBIN (BOVINE) 20,000 UNIT VIAL TP ONE (10:22)
[2016-08-08] MEDS ORDERED: BACITRACIN 50,000 UNITS/10 ML SYR IRR ONE (10:23)
[2016-08-08] MEDS ORDERED: BUPIVACAINE/EPI 0.25% 30 ML SDV ONE (10:23)
[2016-08-08] MEDS ORDERED: GENTAMICIN SULFATE 80 MG/2 ML VIAL ONE (10:23)
[2016-08-08] MEDS ORDERED: CEFAZOLIN 2 GM/DEXTROSE/100 ML BAG IV ONE (11:07)
[2016-08-08] MEDS ORDERED: REMIFENTANIL HCL 1 MG VIAL ONE (11:28)
[2016-08-08] MEDS ORDERED: PROPOFOL/EMULSION 500 MG/50 ML BOTTLE IV ONE (11:28)
[2016-08-08] MEDS ORDERED: LIDOCAINE 1% 30 ML SDV ONE (11:50)
[2016-08-08] MEDS ORDERED: BUPIVACAINE/EPI 0.5% 30 ML SDV ONE (11:50)
[2016-08-08] MEDS ORDERED: FOSPHENYTOIN IV ONE (12:00)
[2016-08-08] MEDS ORDERED: levETIRAcetam 1,000 MG in NS 100 ML IV ONE (12:00)
[2016-08-08] MEDS ORDERED: NS IV ONE (12:00)
[2016-08-08] MEDS ORDERED: fentaNYL 100 MCG/2 ML INJ ONE (16:31)
[2016-08-08] MEDS ORDERED: ONDANSETRON 4 MG/2 ML VIAL IVP PRN (16:38)
[2016-08-08] MEDS ORDERED: METHOCARBAMOL 750 MG TAB PO PRN (16:38)
[2016-08-08] MEDS ORDERED: ONDANSETRON DISINTEGRATING 4 MG TAB PO PRN (16:38)
[2016-08-08] MEDS ORDERED: LACTULOSE 20 GM/30 ML UDCUP PO PRN (16:38)
[2016-08-08] MEDS ORDERED: niCARdipine/NACL 200 ML IV PRN (16:38)
[2016-08-08] MEDS ORDERED: BISACODYL 10 MG SUPP PR PRN (16:38)
[2016-08-08] MEDS ORDERED: DIAZEPAM 5 MG TAB PO PRN (16:38)
[2016-08-08] MEDS ORDERED: POLYETHYLENE GLYCOL 3350 17 GM PKT PO PRN (16:38)
[2016-08-08] MEDS ORDERED: MAGNESIUM HYDROXIDE 30 ML UDCUP PO PRN (16:38)
[2016-08-08] MEDS ORDERED: ACETAMINOPHEN 325 MG TAB PO PRN (16:38)
[2016-08-08] MEDS ORDERED: NS W/ 20 KCl/L 1,000 ML IV SCH (16:45)
--- NOTE | 2016-08-08 16:55 | POSTOPPROG ---
Post Op Note Date of Operation: 08/08/16 Surgeon: Matteo Saleh Marketing Analytics Analyst: Tena Cuellar Anesthesia: GET(General Endotracheal) Pre-op Diagnosis: Glioblastoma Post-op Diagnosis: Glioblastoma Procedure: Left sided awke craniotomy for resection of glioblastoma Findings: See operative report Inf/Abcess present in the surg proc area at time of surgery?: No Depth: Organ Space EBL: 50-100 Drains: Pavan Garsia SOAP Progress Note Assessment/Plan: Assessment: Plan: S: Patient waking up in PACU with headache as expected. 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 Saleh in PACU 08/08/16 16:50
[2016-08-08] MEDS ORDERED: *MD ORDERING ONLY-DEXAMETHASONE TAPER PO SCH (17:00)
--- NOTE | 2016-08-08 17:30 | GOP ---
[f rep st] OPERATIVE REPORT DATE OF OPERATION: 08/08/2016 SURGEON: Matteo Saleh MD GLASS BLOWER HELPER: AVERY Clarke PREOPERATIVE DIAGNOSIS: Left frontal glioblastoma. POSTOPERATIVE DIAGNOSIS: Left frontal glioblastoma. PROCEDURE PERFORMED: 1. Redo left frontal craniotomy. 2. Awake motor and speech mapping with intraoperative stimulation and monitoring as well as real-ti me motor monitoring during tumor resection. 3. Use of the operative microscope. 4. Microsurgical gross total resection of left frontal glioblastoma. 5. Stealth stereotactic neuronavigation for volumetric gross total resection. FINDINGS: Successful glioblastoma resection. SPECIMENS: Left frontal glioblastoma for permanent section. ESTIMATED BLOOD LOSS: Approximately 150 cc. INDICATIONS: The patient is a 61-year-old man who presented last week with some aphasia and dysarth awa. He was admitted to the hospital, and we made a first attempt with awake craniotomy for resecti on and biopsy of his tumor, approximately a week and a half ago. Unfortunately, at that time, duryusuf g the intraoperative wake-up portion, the patient became agitated and pulled himself from the [employer] pins. Therefore, did not feel safe moving forward with the surgery, and the tumor was biopsied, and the remainder of the surgery was aborted. I have talked to him several times since that time, a nd we felt it would be optimal to bring him back for a redo surgery and attempt a gross total resect ion. I explained all the risks and benefits to him, and he agreed to proceed. DESCRIPTION OF PROCEDURE: After informed consent was obtained from the patient, the patient was bro ught to the operating room and placed in a supine position on the operating table. A formal time-ou t was performed, identifying the patient by name, medical record number, and date of . Some co nscious sedation was administered. All the appropriate lines were placed, and we then used a 1:1 mi x of 1% lidocaine and 0.25% Marcaine with epinephrine to perform a scalp block at the root of each z ygoma and over the supraorbital nerves. We then placed the patient in the Velasco pins with a lot of local anesthetic administration at the pin sites. He was then secured to the table and allowed t o awaken, where his exam was good, he was talking, and the exam was otherwise normal. Next, the Nilo alth was registered to the scalp using known surface landmarks and checked for accuracy. Once the p atient was comfortable, the head was then prepped and draped in the normal sterile fashion. 0.25% M arcaine with epinephrine was infiltrated into the skin around the site of the previous incision, whi ch was in a reverse question-shimon fashion in standard frontal fashion. We then made the skin incisi on using a 15 blade, and the scissors were used to remove the old sutures and open the extent of the craniotomy incision. Once the incision was opened, the temporalis muscle and fascia was opened and flapped forward, exposing the old craniotomy flap. The patient was tolerating all this quite well. The screws and plates were removed, and the bone flap was removed exposing the dura. The dural funk tures were then cut, and the dura was flapped open in a cruciate fashion. At this point, a 6 contac t strip electrode was placed perpendicular to the gyri posteriorly, and we mapped the motor gyrus us ing phase reversal. This corresponded with the same gyrus that we had mapped in the previous surger y. Once we were confident that we had good motor mapping, we then began speech mapping using the Clickon stimulator. We stimulated all areas of the cortex at 1 milliamp, followed by 3 milliamps, fol lowed by 6 milliamps. A few places in the inferior-posterior we did achieve some speech slowing, bu t we never did achieve complete speech arrest. We repeated this several times using different speec h modalities, and the patient tolerated all this quite well. At this point, I decided that we would begin resecting the tumor and continue to monitor his speech and motor. The operative microscope w as then brought on the field, and the remainder of the procedure was performed under high-power magn ification. First, we extended the previous opening from the biopsy onto the sulcus, and split the s ulcus under high-power magnification. The tumor tissue was then easily visualized, and we began to remove some of the tumor using biopsy forceps. We then used the ultrasonic aspirator to continue tu mor removal, starting anteriorly and inferiorly. We were able to see the edges of the tumor and the normal brain surrounding, and once we saw normal brain, we continued around the circumference of th e more anterior portion of this rather large tumor. The superior portions were removed, and each ti me we checked with the Stealth to be sure that we were in the correct location. A few branches of t he MCA were skeletonized around the sulcus, and then we moved to the more posterior tumor nodule, ex tending very near the motor strip. The motor function was continuously monitored throughout this ti me on the right hand, and it remained completely stable throughout that time. The tumor was quite v ascular and somewhat bloody, therefore, all the bleeders were controlled with bipolar electrocautery . Once we had completely removed that posterior nodule, all the circumference of the entire tumor b ed was checked using the Stealth to be sure that we had a good resection. Each area was checked to be sure that I did not see any further tissue that looked necrotic or like tumor tissue, and once we were confident that the entire tumor had been removed, final motor exam was performed. The cavity was lined with Surgicel and was quite dry. Next, the patient was sedated again, and the wound was c opiously irrigated using gentamicin irrigation. The dura was flapped closed, then closed interrupte d fashion using interrupted 4-0 Nurolon. A large piece of Gelfoam was placed over the dural opening , and the craniotomy flap was plated back in place using Synthes titanium plates and screws. The wo und was again copiously irrigated using bacitracin irrigation. A submuscular NORMA drain was placed an d tunneled out sterilely. The temporalis muscle and fascia was closed using interrupted 2-0 Vicryl. The galea was closed using interrupted 2-0 Vicryl, and the skin was closed using a running 4-0 Mon ocryl. The drain was connected to a sterile drainage system. Patient was removed from the Velasco pins, and was at his neurologic baseline and was transferred to the PACU in stable condition with n o operative complications. The motor and speech remained stable throughout the case. FLUIDS AND URINE OUTPUT: Per the per anesthesia record. DRAINS: Submuscular NORMA. /[id number]/MODL
[2016-08-08] MEDS: DEXAMETHASONE 4 MG TAB PO SCH ×2 (18:11→23:55)
[2016-08-08] MEDS: FAMOTIDINE 20 MG TAB PO SCH (21:21)
[2016-08-08] MEDS: ALPRAZolam 0.25 MG TAB PO PRN (21:22)
[2016-08-08] MEDS: GABAPENTIN 300 MG CAP PO SCH (21:22)
[2016-08-08] MEDS: busPIRone 10 MG TAB PO SCH (21:23)
[2016-08-08] MEDS: PROPRANOLOL HCL 10 MG TAB PO SCH (21:23)
[2016-08-08] MEDS: levETIRAcetam 500 MG TAB PO SCH (21:24)
[2016-08-08] MEDS: SENNOSIDES/DOCUSATE SODIUM TAB PO SCH (21:24)
[2016-08-09] MEDS: HYDROCODONE/APAP 10/325 TAB PO PRN (03:01)
[2016-08-09 06:14] LABS: % IMMATURE GRANULYOCYTES 1.9 % (0.0-1.1); ADD DIFF? NO; ADD MORPH? NO; ADD SCAN? NO; ATYPICAL LYMPHOCYTE FLAG 10 (0-99); FRAGMENT RBC FLAG 0 (0-99); HEMATOCRIT 38.8 % (40.0-51.0); HEMOGLOBIN 13.5 g/dL (13.7-17.5); LEFT SHIFT FLG 10 (0-99); LIPEMIA HEMOLYSIS FLAG 90 (0-99); MEAN CELL HEMOGLOBIN 31.4 pg (27.9-34.1); MEAN CELL HEMOGLOBIN CONCENTR. 34.8 g/dL (32.4-36.7); MEAN CELL VOLUME 90.2 fL (81.5-99.8); MEAN PLATELET VOLUME 9.1 fL (8.7-11.7); PLATELET CLUMPS FLAG 10 (0-99); PLATELET COUNT 135 10^3/uL (150-400); RED CELL DISTRIBUTION WIDTH 12.5 % (11.5-15.2)
[2016-08-09] MEDS: DEXAMETHASONE 4 MG TAB PO SCH ×4 (06:23→23:17)
[2016-08-09 06:26] LABS: ANION GAP 4 mEq/L (8-16); CALCIUM 8.4 mg/dL (8.5-10.4); CARBON DIOXIDE 25 mEq/l (22-31); CHLORIDE 103 mEq/L (97-110); CREATININE 0.7 mg/dL (0.7-1.3); GLOMERULAR FILTRATION RATE > 60; GLUCOSE 89 mg/dL (70-100); POTASSIUM 4.8 mEq/L (3.5-5.2); SODIUM 132 mEq/L (134-144)
[2016-08-09] MEDS: OXYCODONE/APAP 5/325 TAB PO PRN ×4 (07:39→22:24)
[2016-08-09] MEDS: busPIRone 10 MG TAB PO SCH ×3 (08:46→21:09)
[2016-08-09] MEDS: GABAPENTIN 300 MG CAP PO SCH ×3 (08:46→21:09)
[2016-08-09] MEDS: levETIRAcetam 500 MG TAB PO SCH ×2 (08:46→21:10)
[2016-08-09] MEDS: FAMOTIDINE 20 MG TAB PO SCH ×2 (08:46→21:10)
[2016-08-09] MEDS: SENNOSIDES/DOCUSATE SODIUM TAB PO SCH ×2 (08:46→21:09)
[2016-08-09] MEDS: PROPRANOLOL HCL 10 MG TAB PO SCH ×3 (08:47→21:10)
[2016-08-09] MEDS ORDERED: GADOBUTROL 10 ML VIAL IVP ONE (10:56)
[2016-08-09] MEDS: ALPRAZolam 0.25 MG TAB PO PRN ×2 (14:24→21:10)
[2016-08-10] MEDS: OXYCODONE/APAP 5/325 TAB PO PRN ×2 (05:08→22:49)
[2016-08-10] MEDS: DEXAMETHASONE 4 MG TAB PO SCH ×3 (05:09→22:50)
[2016-08-10] MEDS: ALPRAZolam 0.25 MG TAB PO PRN ×2 (08:50→18:13)
[2016-08-10] MEDS: GABAPENTIN 300 MG CAP PO SCH ×3 (08:51→20:13)
[2016-08-10] MEDS: SENNOSIDES/DOCUSATE SODIUM TAB PO SCH ×2 (08:52→20:13)
[2016-08-10] MEDS: FAMOTIDINE 20 MG TAB PO SCH ×2 (08:52→20:14)
[2016-08-10] MEDS: levETIRAcetam 500 MG TAB PO SCH (09:00)
[2016-08-10] MEDS: levETIRAcetam 500 MG/5 ML UDCUP PO SCH ×2 (09:19→20:12)
[2016-08-10] MEDS: PROPRANOLOL HCL 10 MG TAB PO SCH ×3 (09:20→20:14)
[2016-08-10] MEDS: busPIRone 10 MG TAB PO SCH ×3 (09:20→20:14)
--- NOTE | 2016-08-10 11:22 | NEUSURGPN ---
Date of Surgery: 08/08/16 Post Op Day: 2 Assessment/Plan: 61 yo M with left frontal GBM, POD2 s/p awake craniotomy for resection. Intraop with good function. Postop with some speech dysarthria and right hemiparesis that is improving on a daily basis. Arm worse than leg. He is ambulatory with assist this AM. Postop MRI with likely GTR, possible tiny residual in anterior inferior resection cavity. The patient will advance his diet today and we will remove his dressing. He will continue aggressive mobilization procedure with PTOT. He and are agreeable to a short Inpatient rehab stay and I have entered and consult. He will continue on his keppra and his decadron taper. Continue floor care. Mars Mora MD BNA Subjective: improved function today on all fronts Objective: AAOx3 speech dysarthric but he is fluent he can name and repeat CN normal TABOR to command Left sided strong RUE antigravity but dyscoordinated today RLE 4+/5 incision dressed Urinary Catheter in Place: No Catheter Insertion Date: 08/08/16 Neurosurgery Physical Exam - Vitals, I&O, Labs I and O 08/09/16 08/10/16 08/11/16 05:59 05:59 05:59 Intake Total 2326.7 1200 Output Total 1985 700 Balance 341.7 500 Weight 84 kg Intake: Oral (ml) 100 1000 IV Intake (ml) 850 200 IV Infused (ml) 1376.7 NS W/ 20 KCl/L 1,000 ml @ 1345 100 mls/hr IV CONT LUCIANO Rx#:[id number] niCARdipine/NACL 200 ml @ 31.7 Titrate IV PRN PRN Rx#: [id number] Output: Urine (ml) 1850 700 Catheter 1850 Toilet 0 Urinal 700 Estimated Blood Loss (ml) 50 Wound Drainage (ml) 85 #1 Left Head Pavan 85 Garsia Head 0 Other: Number of Voids Toilet 1 Vital Signs Temp Pulse Resp BP Pulse Ox 36.9 C 56 L 16 117/71 98 08/10/16 07:02 08/10/16 09:20 08/10/16 07:02 08/10/16 09:20 08/10/16 07:02 Laboratory Results 08/09/16 06:05 08/09/16 12:20 ICD10 Worksheet Patient Problems: Problems Problem Status Onset Altered mental status Acute Brain tumor Acute Seizure Acute
[2016-08-10] MEDS: HYDROCODONE/APAP 10/325 TAB PO PRN (12:38)
[2016-08-10] MEDS: HEPARIN 5,000 UNIT/0.5 ML SYR SC SCH (20:16)
[2016-08-11] MEDS: levETIRAcetam 500 MG/5 ML UDCUP PO SCH ×2 (08:34→21:03)
[2016-08-11] MEDS: ALPRAZolam 0.25 MG TAB PO PRN ×2 (08:34→17:13)
[2016-08-11] MEDS: busPIRone 10 MG TAB PO SCH ×3 (08:36→21:06)
[2016-08-11] MEDS: SENNOSIDES/DOCUSATE SODIUM TAB PO SCH ×2 (08:36→21:05)
[2016-08-11] MEDS: FAMOTIDINE 20 MG TAB PO SCH ×2 (08:36→21:06)
[2016-08-11] MEDS: PROPRANOLOL HCL 10 MG TAB PO SCH ×3 (08:37→21:05)
[2016-08-11] MEDS: GABAPENTIN 300 MG CAP PO SCH ×3 (08:37→21:05)
[2016-08-11] MEDS: HEPARIN 5,000 UNIT/0.5 ML SYR SC SCH ×2 (08:38→21:02)
--- NOTE | 2016-08-11 11:08 | NEUSURGPN ---
Assessment/Plan: 61 yo M with left frontal GBM, POD3 s/p awake craniotomy for resection. Intraop with good function. Postop with some speech dysarthria and right hemiparesis that is improving on a daily basis. Arm worse than leg. He is ambulatory with assist at this point. Postop MRI with likely GTR, possible tiny residual in anterior inferior resection cavity. The patient is tolerating a general diet. His dressing was removed and incision is healing well. He can shower and wash the incision gently today. He will continue aggressive mobilization procedure with PTOT. He and are agreeable to a short Inpatient rehab stay and I have entered and consult. They understand this consult won't take place til tomorrow because of the holiday. He will continue on his keppra and his decadron taper. Continue floor care. Mars Mora MD BNA Subjective: patient enjoying Chimeros's breakfast in chair with his today Objective: AAOx3 speech dysarthric but fluent right facial droop, mild TABOR to command RUE 4-/5 with apraxia RLE 4+/5 Left side strong incision c/d/i Catheter Insertion Date: 08/08/16 Neurosurgery Physical Exam - Vitals, I&O, Labs I and O 08/10/16 08/11/16 08/12/16 05:59 05:59 05:59 Intake Total 1200 1700 Output Total 700 Balance 500 1700 Intake: Oral (ml) 1000 1700 IV Intake (ml) 200 Output: Urine (ml) 700 Toilet 0 Urinal 700 Other: Number of Voids Toilet 1 2 1 Vital Signs Temp Pulse Resp BP Pulse Ox 36.8 C 65 16 111/79 98 08/11/16 08:00 08/11/16 08:37 08/11/16 08:00 08/11/16 08:37 08/11/16 08:00 Laboratory Results 08/09/16 06:05 08/09/16 12:20 ICD10 Worksheet Patient Problems: Problems Problem Status Onset Altered mental status Acute Brain tumor Acute Seizure Acute
[2016-08-11] MEDS: DEXAMETHASONE 4 MG TAB PO SCH (12:59)
[2016-08-11] MEDS: OXYCODONE/APAP 5/325 TAB PO PRN (21:04)
[2016-08-12] MEDS: DEXAMETHASONE 4 MG TAB PO SCH ×3 (00:42→20:47)
[2016-08-12] MEDS: OXYCODONE/APAP 5/325 TAB PO PRN ×3 (04:55→20:48)
[2016-08-12] MEDS: ALPRAZolam 0.25 MG TAB PO PRN ×2 (07:53→16:08)
[2016-08-12] MEDS: GABAPENTIN 300 MG CAP PO SCH ×3 (07:53→20:40)
[2016-08-12] MEDS: PROPRANOLOL HCL 10 MG TAB PO SCH ×3 (07:53→20:40)
[2016-08-12] MEDS: busPIRone 10 MG TAB PO SCH ×3 (07:54→20:39)
[2016-08-12] MEDS: HEPARIN 5,000 UNIT/0.5 ML SYR SC SCH ×2 (07:54→20:43)
[2016-08-12] MEDS: levETIRAcetam 500 MG/5 ML UDCUP PO SCH (07:54)
[2016-08-12] MEDS: FAMOTIDINE 20 MG TAB PO SCH ×2 (07:54→20:38)
[2016-08-12] MEDS: SENNOSIDES/DOCUSATE SODIUM TAB PO SCH ×2 (07:54→20:40)
--- NOTE | 2016-08-12 08:04 | NEUSURGPN ---
Assessment/Plan: 61 yo M with left frontal GBM, POD4 s/p awake craniotomy for resection. Intraop with good function. Postop with some speech dysarthria and right hemiparesis that is improving on a daily basis. Arm worse than leg. Postop MRI with likely GTR, possible tiny residual in anterior inferior resection cavity. -continue aggressive mobilization procedure with PTOT. -continue on his keppra -Continue decadron taper. -MRC eval pending -Discussed with Dr. Saleh -Please notify NS with any change in neuro/motor exam Subjective: Denies any new headaches, nausea, dizziness Objective: AAOx3 speech dysarthric but fluent right facial droop, mild TABOR to command RUE 4-/5 with apraxia, RLE 4+/5, LUE and LLE 5/5 incision c/d/i Catheter Insertion Date: 08/08/16 - Physician Discussed Patient with Dr.: Saleh Patient Seen by : [facility] Physical Exam - Vitals, I&O, Labs I and O 08/11/16 08/12/16 08/13/16 05:59 05:59 05:59 Intake Total 1700 300 Balance 1700 300 Intake: Oral (ml) 1700 300 Other: Number of Voids Toilet 2 1 Vital Signs Temp Pulse Resp BP Pulse Ox 36.6 C 72 15 112/68 98 08/12/16 07:48 08/12/16 07:53 08/12/16 07:48 08/12/16 07:53 08/12/16 07:48 Laboratory Results 08/09/16 06:05 08/09/16 12:20 ICD10 Worksheet Patient Problems: Problems Problem Status Onset Altered mental status Acute Brain tumor Acute Seizure Acute
[2016-08-12] MEDS: levETIRAcetam 250 MG TAB PO SCH (20:39)
[2016-08-13] MEDS: OXYCODONE/APAP 5/325 TAB PO PRN ×2 (07:16→10:32)
[2016-08-13] MEDS: ALPRAZolam 0.25 MG TAB PO PRN ×2 (07:16→14:36)
[2016-08-13 07:56] VITALS: TEMP 97.7
[2016-08-13] MEDS: PROPRANOLOL HCL 10 MG TAB PO SCH (08:48)
[2016-08-13] MEDS: GABAPENTIN 300 MG CAP PO SCH (08:48)
[2016-08-13] MEDS: HEPARIN 5,000 UNIT/0.5 ML SYR SC SCH (08:48)
[2016-08-13] MEDS: FAMOTIDINE 20 MG TAB PO SCH (08:48)
[2016-08-13] MEDS: levETIRAcetam 250 MG TAB PO SCH (08:49)
[2016-08-13] MEDS: busPIRone 10 MG TAB PO SCH (08:49)
[2016-08-13] MEDS: SENNOSIDES/DOCUSATE SODIUM TAB PO SCH (08:49)
--- NOTE | 2016-08-13 09:51 | NEUSURGPN ---
Assessment/Plan: Assessment: Plan: 61 yo M with left frontal GBM, POD5 s/p awake craniotomy for resection. Intraop with good function. Postop with some speech dysarthria and right hemiparesis that is improving on a daily basis. Arm worse than leg. Postop MRI with likely GTR, possible tiny residual in anterior inferior resection cavity. -continue aggressive mobilization procedure with PTOT. -continue on his keppra -Continue decadron taper. -MRC eval pending- possible placement today if insurance accepted -Discussed with Dr. Saleh -Please notify NS with any change in neuro/motor exam Subjective: Denies any new headaches, nausea, dizziness. Speech and right arm improving slowly. Objective: AAOx3 speech dysarthric but fluent follows commands right facial droop, mild TABOR to command RUE 4-/5 with apraxia, RLE 4+/5, LUE and LLE 5/5 incision c/d/i 08/08/16 16:50 Catheter Insertion Date: 08/08/16 - Physician Discussed Patient with Dr.: Saleh Neurosurgery Physical Exam - Vitals, I&O, Labs I and O 08/12/16 08/13/16 08/14/16 05:59 05:59 05:59 Intake Total 300 750 Balance 300 750 Intake: Oral (ml) 300 750 Other: Intake Quantity Yes Sufficient Number of Voids Toilet 1 2 Vital Signs Temp Pulse Resp BP Pulse Ox 36.5 C 74 16 110/69 97 08/13/16 07:55 08/13/16 08:48 08/13/16 07:55 08/13/16 08:48 08/13/16 07:55 Laboratory Results 08/09/16 06:05 08/09/16 12:20 ICD10 Worksheet Patient Problems: Problems Problem Status Onset Altered mental status Acute Brain tumor Acute Seizure Acute
[2016-08-13] MEDS: DEXAMETHASONE 4 MG TAB PO SCH (10:31)
[2016-08-13 11:45] VITALS: BP 125/75; PULSE 72; RESP 18; O2SAT 95
--- NOTE | 2016-08-13 15:23 | PDIAF ---
- Diagnosis Code Status: Full Code - Medication Management Discharge Medications: Medications to Continue on Transfer Gabapentin [Neurontin 300 MG (*)] 300 mg PO TID 07/21/16 [Last Taken 08/07/16] Propranolol HCl [Inderal 10mg (*)] 10 mg PO TID 07/21/16 [Last Taken 08/08/16] busPIRone [Buspar (*)] 10 mg PO TID 07/21/16 [Last Taken 08/07/16] ALPRAZolam [Xanax 0.25 MG (*)] 0.5 mg PO Q6H PRN #60 tab 07/26/16 [Last Taken ] oxyCODONE/APAP 5/325 [Percocet 5/325 (*)] 1 - 2 tab PO Q4HRS PRN #60 tab [Last Taken Unknown] Dexamethasone [Decadron 2 MG (*)] 2 mg PO Q12H #0 tab 08/13/16 [Last Taken Unknown] Dexamethasone [Decadron 2 MG (*)] 2 mg PO Q24H #0 tab 08/13/16 [Last Taken Unknown] Diazepam [Valium 5 MG (*)] 2.5 - 5 mg PO QID PRN #0 tab 08/13/16 [Last Taken Unknown] Famotidine [Pepcid 20 MG (*)] 20 mg PO BID #0 tab 08/13/16 [Last Taken Unknown] HYDROcodone/APAP 10/325 [Alma 10/325 (*)] 1 - 2 tab PO Q6HRS PRN #0 tab [Last Taken Unknown] Heparin [Heparin SC 5000 unit/0.5 ml (*)] 5,000 unit SC BID #0 syr 08/13/16 [ Last Taken Unknown] Methocarbamol [Robaxin 750 mg (*)] 750 mg PO QID PRN #0 tab 08/13/16 [Last Taken Unknown] Ondansetron Odt [Zofran Odt 4 mg (*)] 4 - 8 mg PO Q6HRS PRN #0 tab 08/13/16 [ Last Taken Unknown] Polyethylene Glycol 3350 [Miralax 17 gm (*)] 17 gm PO DAILY PRN #0 pkt 08/13/16 [Last Taken Unknown] Sennosides/Docusate Sodium [Senokot-S] 1 - 2 tab PO BID #0 tab 08/13/16 [Last Taken Unknown] levETIRAcetam [Keppra 250 mg (*)] 750 mg PO BID #0 tab 08/13/16 [Last Taken Unknown] Long-Term Antibiotics: n/a Discharge Medications: Refer to the Discharge Home Medication list for PRN reason. - Orders Services needed: Registered Nurse, Master Meat Market Manager, Physical Therapy, Occupational Therapy, Speech Language Pathologist Diet Recommendation: no restrictions on diet Diet Texture: Regular Texture Diet, Thin Liquids Wound Care Instructions: Continue Decadron Taper- 2mg q12 X 3 days through 08/15 23:59, then 2mg q24hrs X 3 days then stop. May shower, let warm soapy water wash over incision. No scrubbing incision. Activity as tolerated. Continue PT /OT/JIG BORING MACHINE OPERATOR FOR METAL Sutures/[place] Site: Sutures are dissolvable Activity/Weight Bearing Restrictions: May shower, let warm soapy water wash over incision. No scrubbing incision. Activity as tolerated. Continue PT/OT/ JIG BORING MACHINE OPERATOR FOR METAL - Follow Up Care Current Providers and Referrals: Tc Cyr MD [Primary Care Provider] - Matteo Saleh MD [Medical Doctor] - follow up in 2 weeks
[2016-08-13] MEDS ORDERED: DEXAMETHASONE 2 MG TAB PO SCH (23:30)
[2016-08-17] MEDS ORDERED: DEXAMETHASONE 2 MG TAB PO SCH (11:30)
== END 2016-08-13 16:13 | DRG 27 ==
LOC: F3N 08:48 → F2N 16:56 → F3N 08-09 22:09
PROVIDERS: ADMIT Neurological Surgery; ATTEND Neurological Surgery
PROC: 00B00ZZ Excision of Brain, Open Approach (ICD-10-PCS; principal; 2016-08-08 11:30)
DX: C71.1 Malignant neoplasm of frontal lobe (principal)
CPT/HCPCS: 92507-GN; 92523-GN; 92610-GN; 97110-GO; 97112-GP; 97116-GP; 97162-GP; 97163-GP; 97166-GO; 97530-GO; A9585; J0690; J1953; J2704; J3010; Q2009

== ENCOUNTER 2016-08-13 14:37 | Inpatient (IN) | payer OTHER ==
[2016-08-13] MEDS ORDERED: ONDANSETRON DISINTEGRATING 4 MG TAB PO PRN (17:37)
[2016-08-13] MEDS ORDERED: DIAZEPAM 5 MG TAB PO PRN (17:37)
[2016-08-13] MEDS ORDERED: METHOCARBAMOL 750 MG TAB PO PRN (17:37)
[2016-08-13] MEDS ORDERED: POLYETHYLENE GLYCOL 3350 17 GM PKT PO PRN (17:37)
[2016-08-13] MEDS ORDERED: HYDROCODONE/APAP 10/325 TAB PO PRN (17:37)
[2016-08-13] MEDS ORDERED: SENNOSIDES 1 TAB PO PRN (17:39)
[2016-08-13] MEDS ORDERED: BISACODYL 10 MG SUPP PR PRN (17:39)
[2016-08-13] MEDS: DEXAMETHASONE 2 MG TAB PO SCH (18:03)
--- NOTE | 2016-08-13 19:15 | GHP ---
[f rep st] HISTORY AND PHYSICAL POST ADMISSION PHYSICIAN EVALUATION AND REHABILITATION TREATMENT PLAN DATE OF ADMISSION: 08/13/2016 DATE OF EVALUATION: 08/13/2016. TIME OF EVALUATION: 1755. REFERRING FACILITY: [facility]. REFERRING PHYSICIAN: Matteo Saleh MD IMPAIRMENT GROUP: 2.1. DATE OF ONSET: 08/08/2016. REHABILITATION DIAGNOSIS: Debility, status post craniotomy and excision of right frontal glioblastoma. ETIOLOGIC DIAGNOSIS: Nontraumatic brain dysfunction. DATE OF SURGERY: Initially was 07/24/2016 and subsequently 08/08/2016. HISTORY OF PRESENT ILLNESS: Mr. Rodrigues was admitted to [facility] on 07/21/2016 with difficulty speaking. He was diagnosed with a right frontal mass. He had an initial attempt at surgery with awake craniotomy, but he became agitated and the surgery had to be terminated. He returned home and then came back, and craniotomy was accomplished with resection of the tumor on 08/08/2016. Post surgery, he had dysarthria and right upper extremity greater than lower extremity hemiparesis. Postoperative MRI showed possibly a tiny residual in the anterior inferior resection cavity. He was continued on levetiracetam, which had been begun when he first presented to the hospital, as well as dexamethasone. He was stabilized and appropriate for transfer to inpatient rehabilitation. He reports he wants to go home and would rather not be here. He feels his speech has been improving as has been the strength of his right upper extremity. He says he has an occasional headache and he requests an aid for sleeping. He reports that his difficulty with articulating words improves after he takes alprazolam, which relaxes him. Other studies and labs done in the hospital: CBC on 08/09/2016 showed an elevated white blood cell count of 10.66. He had mild anemia with a hemoglobin of 13.5 and a hematocrit of 38. He had mild thrombocytopenia with a platelet count of 135. Serum chemistry showed hyponatremia on 08/09/2016 in the morning with a sodium of 132. Subsequently at noon, sodium had improved to 136. He appeared to be somewhat dehydrated with a BUN of 28 and a creatinine of 0.7. PRECAUTIONS: He is a fall risk. He has seizure precautions. ACTIVE COMORBIDITIES: He has a tier 3 comorbidity of hemiparesis on the right. Otherwise, there are no active tier 1, tier 2, or tier 3 comorbidities. PAST MEDICAL HISTORY: 1. Hypertension. 2. 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 3. Anxiety. 4. He denies any history of blood clots. 5. He denies any history of gastrointestinal ulcers. PAST SURGICAL HISTORY: He has not had any previous surgeries. PREHOSPITAL MEDICATIONS: 1. Buspirone 10 mg p.o. three times daily. 2. Propranolol 10 mg p.o. three times daily. 3. Gabapentin 300 mg p.o. three times daily. ADMISSION MEDICATIONS: 1. Hydrocodone/acetaminophen 10/325 one to 2 tabs p.o. q.6 hours p.r.n. 2. Alprazolam 0.5 mg p.o. q.6 hours p.r.n. anxiety. 3. Buspirone 10 mg p.o. three times daily. 4. Dexamethasone 2 mg p.o. q.12 hours through 08/15/2016, and then 2 mg p.o. daily starting 08/16/2016 for another 3 days. 5. Diazepam 2.5-5 mg p.o. four times daily p.r.n. spasms. 6. Famotidine 20 mg p.o. twice daily. 7. Gabapentin 300 mg p.o. three times daily. 8. Heparin 5000 units subcutaneously twice daily. 9. Levetiracetam 750 mg p.o. twice daily. 10. Methocarbamol 750 mg p.o. four times daily p.r.n. spasms. 11. Ondansetron 48 mg p.o. q.6 hours p.r.n. nausea, vomiting. 12. Oxycodone/acetaminophen 5/325 one to 2 tabs p.o. q.4 hours p.r.n. severe pain. 13. Propranolol 10 mg p.o. three times daily. 14. Senna/docusate 1 tab p.o. twice daily p.r.n. ALLERGIES: There are no known drug allergies. FAMILY HISTORY: Noncontributory. 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 He lives with his . They have 1 adult daughter 25 years old who lives nearby. He is a nonsmoker. He has a history of alcohol abuse. He has been through rehabilitation and is no longer an alcohol abuser. REVIEW OF SYSTEMS: Other than as in HPI, his reports that he has a reduced appetite. He denies nausea, vomiting, constipation, or diarrhea though , per his , he has had some weight loss. He denies cough, dyspnea, chest pain, palpitations, dysuria, urinary frequency, difficulty initiating his urinary stream or nocturia. Other than that, a 10-point review of systems is negative. PHYSICAL EXAMINATION: VITAL SIGNS: Blood pressure is 121/84, heart rate is 70 , respiratory rate is 16, oxygen saturation is 98% on room air, temperature is 36.6 degrees centigrade. His weight is 75.1 kg for a body mass index of 21.3. Per chart review, his weight on 07/21/2016 was 84 kg. GENERAL: This is a well- nourished, well-developed man who appears his chronologic age, cooperative, and in no acute distress. HEENT: Extraocular movements are intact. Pupils are equal, round, and reactive to light. Mucous membranes are moist. Dentition is in good condition. He is missing teeth in his left mandible, and his reports he has recently had dental extractions and was being fitted for a bridge. NECK: Supple. HEART: There is a regular rate and rhythm with no murmurs, rubs, or gallops. LUNGS: Clear to auscultation bilaterally. ABDOMEN : Soft, nontender, nondistended, with normoactive bowel sounds and no hepatosplenomegaly. EXTREMITIES: There is no cyanosis, clubbing, or edema. Radial and dorsalis pedis pulses are 2+ bilaterally. NEUROLOGIC: He is alert and oriented x3. Cranial nerves 2-12 are grossly intact. He is quite dysarthric. Right upper extremity strength is overall 3/5 in the hand team coordinator, biceps, triceps and deltoid. His strength otherwise is 5/5 overall. Sensation is intact to light touch, though reduced in the right upper extremity. Deep tendon reflexes are 2+ bilaterally at the biceps, patellar and Achilles tendons. Gait was not tested, but he arises from seated independently and takes a normal stance. Current level of function per the preadmission screen: Regarding diet, feeding, and swallowing, he was on a regular diet with thin liquids. Regarding grooming, he required minimal assistance. For bathing, he required assistance and supervision. For dressing, upper extremities, was accomplished with set up. And lower extremities with moderate assistance. For toileting, he needed supervision. Bed mobility was done with standby assist to contact guard assist. Transfers were done with contact guard assist. Balance required standby assist. Regarding gait, he was able to ambulate 250 feet with contact guard assist and was noted to move too quickly. Regarding communication , he was dysarthric, but fluent. For cognition, he was oriented to person, place, and situation. He needed some voice cuing for safety and pace, and he was noted to have frustration. Regarding safety precautions, he was noted to be impulsive and to have a fall risk. IMPRESSION: Mr. Rodrigues is a 61-year-old man who had resection of a glioblastoma multiforme on 08/08/2016. There may be some residual tumor left. He is right handed and has right upper extremity weakness and ataxia. Additionally, he has severe dysarthria and he may have some cognitive issues, including impulsivity and poor safety awareness. He is appropriate for inpatient rehabilitation where he will benefit from physical and occupational therapy regarding mobility and activities of daily living. His mobility appears to be good, but fall risk and judgment for safety are yet to be determined. He will benefit also from speech and language pathology regarding dysarthria and for any cognitive assessment, which may be indicated. He will benefit from nursing care for wound healing, bowel and bladder, medication management, skin integrity, and fall risk. He will benefit from the care of a physician regarding pain management, risk for seizures, risk for infections, constipation and anxiety. His goal is to return home with his family. For a safe discharge, he will need to achieve supervision to modified independence with mobility, ADLs and cognition. He will need to be able to manage his medications and there will need to be education for him and his family regarding medications and his neurologic status. He will receive therapy with physical therapy, occupational therapy, and speech and language pathology for 60 minutes for each discipline 5-7 days per week. His expected duration is estimated to be 10-12 days, but it is possible that he will be ready to leave sooner. It is anticipated that upon discharge, he will continue to benefit from home health services, including speech and language pathology, occupational therapy and physical therapy, as well as a brain injury support group. ASSESSMENT AND PLAN: 1. Debility following craniotomy and resection of right frontal glioblastoma multiforme. Physical and Occupational Therapy to optimize mobility and activities of daily living. 2. Dysarthria, impulsivity and possible other cognitive effects of his tumor resection. He will be assessed and treated per Speech and Language Pathology. 3. Anxiety and insomnia. The risks of benzodiazepines were discussed with the patient, including memory loss and balance impairment. Will prescribe trazodone 50 mg at bedtime to help his sleep. 4. Pain status post craniotomy. He reports he gets headaches. Continue hydrocodone/acetaminophen for moderate pain, and oxycodone/acetaminophen for severe pain. 5. Prophylaxis regarding brain edema and seizures. Continue dexamethasone and levetiracetam as ordered out of the hospital. 6. Constipation potentially due to pain medications. Continue his bowel program ordered out of the hospital. Will substitute senna for senna/docusate, as the docusate does not add any further benefit. 7. Hypertension. He reports this has been mild or borderline. Will continue the propranolol 10 mg three times daily for now, and his blood pressure will be monitored. He has had some weight loss. It could be that as the dexamethasone is tapered, he will no longer need any antihypertensive medication. 8. History of peripheral neuropathy. Continue gabapentin. He does not want to consider potentially discontinuing it with his current other health complications going. 9. Weight loss, query whether it is due to active cancer. A consult with the dietitian has been ordered. 10. Deep venous thrombosis risk. His mobility appears to be fairly good. However he has just had surgery and he has an active cancer. Will continue heparin for now and consider discontinuing it as his mobility improves further. Followup. He has followup scheduled with Dr. Saleh of Neurosurgery on 2016. Will determine whether this followup needs to be done while he is inpatient or can be postponed. He has followup scheduled with oncologist, Dr. Raphael, on 08/16/2016 and he should keep this appointment. /[id number]/MODL MTDD
[2016-08-13] MEDS: levETIRAcetam 250 MG TAB PO SCH (20:29)
[2016-08-13] MEDS: ALPRAZolam 0.5 MG TAB PO PRN (20:33)
[2016-08-13] MEDS: FAMOTIDINE 20 MG TAB PO SCH (20:34)
[2016-08-13] MEDS: HEPARIN 5,000 UNIT/0.5 ML SYR SC SCH (20:34)
[2016-08-13] MEDS: GABAPENTIN 300 MG CAP PO SCH (21:46)
[2016-08-13] MEDS: traZODone 50 MG TAB PO SCH (21:46)
[2016-08-13] MEDS: busPIRone 10 MG TAB PO SCH (21:46)
[2016-08-13] MEDS: PROPRANOLOL HCL 10 MG TAB PO SCH (23:13)
[2016-08-14] MEDS: DEXAMETHASONE 2 MG TAB PO SCH ×2 (06:32→17:52)
[2016-08-14 08:32] LABS: % IMMATURE GRANULYOCYTES 1.3 % (0.0-1.1); ADD DIFF? NO; ADD MORPH? NO; ADD SCAN? NO; ATYPICAL LYMPHOCYTE FLAG 10 (0-99); FRAGMENT RBC FLAG 0 (0-99); HEMATOCRIT 39.4 % (40.0-51.0); HEMOGLOBIN 13.8 g/dL (13.7-17.5); LEFT SHIFT FLG 10 (0-99); LIPEMIA HEMOLYSIS FLAG 90 (0-99); MEAN CELL HEMOGLOBIN 31.2 pg (27.9-34.1); MEAN CELL VOLUME 89.1 fL (81.5-99.8); MEAN PLATELET VOLUME 9.8 fL (8.7-11.7); PLATELET CLUMPS FLAG 0 (0-99); PLATELET COUNT 111 10^3/uL (150-400); RED BLOOD CELL COUNT 4.42 10^6/uL (4.40-6.38); RED CELL DISTRIBUTION WIDTH 12.2 % (11.5-15.2)
[2016-08-14] MEDS: busPIRone 10 MG TAB PO SCH ×3 (08:44→21:30)
[2016-08-14] MEDS: FAMOTIDINE 20 MG TAB PO SCH ×2 (08:45→21:28)
[2016-08-14] MEDS: GABAPENTIN 300 MG CAP PO SCH ×3 (08:46→21:30)
[2016-08-14] MEDS: HEPARIN 5,000 UNIT/0.5 ML SYR SC SCH ×2 (08:47→21:30)
[2016-08-14] MEDS: levETIRAcetam 250 MG TAB PO SCH ×2 (08:47→21:29)
[2016-08-14] MEDS: PROPRANOLOL HCL 10 MG TAB PO SCH ×3 (08:48→21:31)
--- NOTE | 2016-08-14 08:50 | SOAPPROG ---
SOAP Progress Note Assessment/Plan: Assessment: * Debility following craniotomy and resection of left frontal glioblastoma multiforme on 08/08/16. Physical and Occupational Therapy to optimize mobility and activities of daily living. * Dysarthria, impulsivity and possible other cognitive effects of his tumor resection. He will be assessed and treated per Speech and Language Pathology. * Anxiety and insomnia. Continue trazodone 50 mg at bedtime to help his sleep. Had alprazolam this afternoon 08/14/16. Encourage non-use of benzodiazepines. Continue to monitor. * Pain status post craniotomy. He reports he gets headaches. Continue hydrocodone/acetaminophen for moderate pain, and oxycodone/acetaminophen for severe pain. * Prophylaxis regarding brain edema and seizures. Continue dexamethasone and levetiracetam as ordered out of the hospital. * Constipation potentially due to pain medications. Continue his bowel program with senna and polyethylene glycol. Bisacodyl suppository is available PRN. * Hypertension. He reports this has been mild or borderline. Will continue the propranolol 10 mg three times daily for now, and his blood pressure will be monitored. He has had some weight loss. It could be that as the dexamethasone is tapered, he will no longer need any antihypertensive medication. * History of peripheral neuropathy. Continue gabapentin. He does not want to consider potentially discontinuing it with his current other health complications going. * Weight loss, query whether it is due to active cancer. A consult with the dietitian has been ordered. * DVT prophylaxis. Improved mobility but also with active cancer. Continue heparin until mobility is consistently normalizing. Followup with Dr. Saleh of Neurosurgery on 08/15/2016 was postponed in conversation with KAREN Correa today 08/14/16; will schedule for after he leaves Inpatient Rehabilitation. He has followup scheduled with oncologist, Dr. Raphael, on 08/16/2016 and he should keep this appointment. 08/14/16 18:12 Subjective: Fatigued after a busy day with therapies. O/W no complaints. HAs better. No cough/dyspnea, f/c. Objective: Vital Signs Temp Pulse Resp BP Pulse Ox 36.8 C 51 L 16 105/62 98 08/14/16 06:26 08/14/16 06:26 08/14/16 06:26 08/14/16 06:26 08/14/16 06:26 Laboratory Results 08/14/16 07:30 08/13/16 08/14/16 08/15/16 05:59 05:59 05:59 Intake Total 350 Balance 350 Physical Exam - Physical Exam General Appearance: WD/WN, alert, no apparent distress Respiratory: No respiratory distress, No accessory muscle use Cardiac/Chest: No edema Skin: normal color, warm/dry Neuro/Psych: alert, normal mood/affect, speech abnormalities (Dysarthria) ICD10 Worksheet Patient Problems: Problems Problem Status Onset Altered mental status Acute Brain tumor Acute Seizure Acute
--- NOTE | 2016-08-14 08:50 | PDOREHIP ---
Admission [facility] - Admission - 3 Day Assessment Period Admission Date/Day 1: 08/13/16 Day 2: 08/14/16 Day 3: 08/15/16 - Active Diagnoses Comorbidities and Co-existing Conditions at Admission: 88668. None of the Above - Skin Conditions Unhealed Pressure Ulcer (1 or more/Stage 1 or >)-Admission: 0. No
[2016-08-14] MEDS: ALPRAZolam 0.5 MG TAB PO PRN ×3 (08:56→22:55)
[2016-08-14 09:02] LABS: ANION GAP 10 mEq/L (8-16); CALCIUM 8.8 mg/dL (8.5-10.4); CARBON DIOXIDE 23 mEq/l (22-31); CHLORIDE 104 mEq/L (97-110); CREATININE 0.7 mg/dL (0.7-1.3); GLOMERULAR FILTRATION RATE > 60; GLUCOSE 63 mg/dL (70-100); SODIUM 137 mEq/L (134-144); SPECIMEN HEMOLYSIS 148
[2016-08-14] MEDS: OXYCODONE/APAP 5/325 TAB PO PRN ×4 (12:31→22:55)
[2016-08-14] MEDS: traZODone 50 MG TAB PO SCH (21:29)
[2016-08-15] MEDS: DEXAMETHASONE 2 MG TAB PO SCH ×2 (05:44→17:57)
[2016-08-15] MEDS: OXYCODONE/APAP 5/325 TAB PO PRN ×4 (07:06→20:38)
[2016-08-15] MEDS: HEPARIN 5,000 UNIT/0.5 ML SYR SC SCH ×2 (08:39→21:32)
[2016-08-15] MEDS: FAMOTIDINE 20 MG TAB PO SCH ×2 (08:39→21:29)
[2016-08-15] MEDS: PROPRANOLOL HCL 10 MG TAB PO SCH ×3 (08:39→21:31)
[2016-08-15] MEDS: busPIRone 10 MG TAB PO SCH ×3 (08:40→21:30)
[2016-08-15] MEDS: GABAPENTIN 300 MG CAP PO SCH ×3 (08:41→21:30)
[2016-08-15] MEDS: levETIRAcetam 250 MG TAB PO SCH ×2 (08:41→21:28)
[2016-08-15] MEDS ORDERED: PNEUMOCOCCAL 0.5ML VACCINE VIAL IM ONE (09:50)
--- NOTE | 2016-08-15 13:58 | SOAPPROG ---
SOAP Progress Note Assessment/Plan: Assessment/ plan: 08/15/2016- discussed need for a safe discharge and goals of IPR. Tolerating therapies well so far, anxious to get home as soon as possible to maximize time remaining. Counseled to take good PO given high BUN/Cr ratio. Goal to stop bed alarm, discussed with nursing and will DC if he has been demonstrating safety consistently. Remainder of plan unchanged. Consider long acting benzo to help with speech. This is the first time meeting Mr. Campbell and all medical issues are new to me. * Debility following craniotomy and resection of left frontal glioblastoma multiforme on 08/08/16. Physical and Occupational Therapy to optimize mobility and activities of daily living. * Dysarthria, impulsivity and possible other cognitive effects of his tumor resection. He will be assessed and treated per Speech and Language Pathology. Note that the alprazolam has been helpful in smoothing his speech (per his report). Consider switching to a long acting benzo if it it proves to be a good strategy. * Anxiety and insomnia. Continue trazodone 50 mg at bedtime to help his sleep. Had alprazolam this afternoon 08/14/16. Encourage non-use of benzodiazepines, but recognizing that his speech is reportedly better with it. Continue to monitor. * Pain status post craniotomy. He reports he gets headaches. Continue hydrocodone/acetaminophen for moderate pain, and oxycodone/acetaminophen for severe pain. * Prophylaxis regarding brain edema and seizures. Continue dexamethasone and levetiracetam as ordered out of the hospital. * Constipation potentially due to pain medications. Continue his bowel program with senna and polyethylene glycol. Bisacodyl suppository is available PRN. * Hypertension. He reports this has been mild or borderline. Will continue the propranolol 10 mg three times daily for now, and his blood pressure will be monitored. He has had some weight loss. It could be that as the dexamethasone is tapered, he will no longer need any antihypertensive medication. * History of peripheral neuropathy. Continue gabapentin. He does not want to consider potentially discontinuing it with his current other health complications going. * Weight loss, query whether it is due to active cancer. A consult with the dietitian has been ordered. * DVT prophylaxis. Improved mobility but also with active cancer. Continue heparin until mobility is consistently normalizing. * Dehydration: encouraged good PO. Monitor clinically, no orthostasis so far. Followup with Dr. Saleh of Neurosurgery on 08/15/2016 was postponed in conversation with KAREN Correa today 08/14/16; will schedule for after he leaves Inpatient Rehabilitation. He has followup scheduled with oncologist, Dr. Raphael, on 08/16/2016 and he should keep this appointment. 08/15/16 13:54 08/15/16 14:01 Subjective: CC: Speech and goals of care No acute events overnight. Pt wants to get home as quickly as possible to maximize his remaining time. He also notes that the xanax is helpful in smoothing out his speech as he does not feel as pressured, thus improving his overall communication. PO intake OK, but he notes that he cannot drink quickly because of dysphagia, no coughing. Emphasized goal of a safe discharge home as quickly as possible. He would also like to stop the bed alarm if possible, feels that he has been safe. Objective: Vital Signs Temp Pulse Resp BP Pulse Ox 36.4 C 64 16 119/65 99 08/15/16 06:46 08/15/16 08:39 08/15/16 06:46 08/15/16 08:39 08/15/16 06:46 Laboratory Results 08/14/16 07:30 08/14/16 06:50 08/14/16 08/15/16 08/16/16 05:59 05:59 05:59 Intake Total 350 490 Output Total 600 Balance 350 -110 Physical Exam - Physical Exam General Appearance: alert, no apparent distress EENT: No scleral icterus (R), No scleral icterus (L) Respiratory: lungs clear, normal breath sounds, No respiratory distress Cardiac/Chest: regular rate, rhythm, No edema Skin: normal color, warm/dry Extremities: No pedal edema, No swelling Neuro/Psych: alert, normal mood/affect, motor weakness (right malgorzata), speech abnormalities (slowed speech) ICD10 Worksheet Patient Problems: Problems Problem Status Onset Altered mental status Acute Brain tumor Acute Seizure Acute
[2016-08-15] MEDS: traZODone 50 MG TAB PO SCH (21:32)
[2016-08-15 23:24] VITALS: TEMP 98.1
[2016-08-16] MEDS: OXYCODONE/APAP 5/325 TAB PO PRN (01:02)
[2016-08-16] MEDS: GABAPENTIN 300 MG CAP PO SCH ×2 (08:19→16:03)
[2016-08-16] MEDS: levETIRAcetam 250 MG TAB PO SCH (08:19)
[2016-08-16] MEDS: FAMOTIDINE 20 MG TAB PO SCH (08:20)
[2016-08-16] MEDS: ALPRAZolam 0.5 MG TAB PO PRN ×2 (08:20→11:00)
[2016-08-16] MEDS: busPIRone 10 MG TAB PO SCH ×2 (08:20→16:03)
[2016-08-16] MEDS: HEPARIN 5,000 UNIT/0.5 ML SYR SC SCH (08:20)
[2016-08-16 08:28] VITALS: BP 133/81; PULSE 67; RESP 16; O2SAT 100
[2016-08-16] MEDS: PROPRANOLOL HCL 10 MG TAB PO SCH ×2 (08:28→16:03)
[2016-08-16] MEDS ORDERED: DEXAMETHASONE 2 MG TAB PO SCH (09:00)
[2016-08-16] MEDS ORDERED: SENNOSIDES 1 TAB PO SCH (21:00)
--- NOTE | 2016-08-16 22:06 | GDS ---
[f rep st] DISCHARGE SUMMARY DISCHARGE DIAGNOSIS: Debility status post craniotomy and excision of left frontal glioblastoma multiforme. OTHER DISCHARGE DIAGNOSES: Anxiety and insomnia and hypertension. CONSULTATIONS: He was seen in consultation by his oncologist Dr. Raphael during his stay. PROCEDURES: There were none. COMPLICATIONS: There were none. HISTORY AND HOSPITAL COURSE: The patient was admitted it to [facility] on 07/21/2016 with difficulty speaking. He was found to have a right frontal mass. He underwent surgical excision. It required 2 attempts. The first time was an open conscious craniotomy, but he became agitated and it had to be terminated. Subsequently, he came back and had a craniotomy and resection on . Post surgery, he had dysarthria and right upper extremity as well as right lower extremity weakness. He was stabilized and appropriate for transfer to inpatient rehabilitation. He strongly preferred to be at home. However, given the nature of his deficits , he agreed to stay. He worked with physical, occupational and speech therapies. He was stable ambulating. He walked more than 300 feet outside and inside with no loss of balance. He had some return of function to the right upper extremity. He was independent in his room. He was safe on stairs. He ascended and descended 18 stairs. His Functional [place] Measure was 93 on 08/16/2016, which is consistent with a high level of assisted living facility function. He had moderate to severe dysarthria. He also had velopharyngeal incompetence which gave him a nasal tone to his speech, further impairing comprehensibility, and he had mild dysphagia due to incomplete seal of the velopharyngeal apparatus. He was also noted to have decreased complex problem solving and he had perseveration. He was deemed safe to go home. DISCHARGE PHYSICAL EXAM: VITAL SIGNS: Blood pressure is 133/81, heart rate is 67, respiratory rate is 16, oxygen saturation is 100% on room air, temperature is 36.7 degrees centigrade. GENERAL: This is a well-nourished, well-developed man in bed, fatigued after his trip to the oncologist office, in bed, cooperative and in no acute distress. HEENT: Incision on his left frontal region is clean, dry and intact. Extraocular movements are intact. Mucous membranes are moist. HEART: There is a regular rate and rhythm with no murmurs , rubs, or gallops. LUNGS: Clear to auscultation bilaterally. ABDOMEN: Soft , nontender, nondistended with normoactive bowel sounds. EXTREMITIES: There is no cyanosis, clubbing, or edema. NEUROLOGIC: He is quite dysarthric and difficult to understand. He has right upper extremity weakness. He has, however, overall normal gait despite having some weakness in the left lower extremity. Sensation is intact to light touch. DISCHARGE CONDITION: Good. DISCHARGE ACTIVITY: Ad yolanda, but no driving. DIET: Regular. FOLLOWUP: 1. Date of next appointment: He will follow up with Oncology, Dr. Raphael, at his [place] office on 09/03/2016. 2. He should see his primary care provider, Dr. Cyr, in approximately 2 weeks. 3. He should see neurosurgeon, Dr. Saleh, in approximately 2 weeks. 4. He will have follow up with Radiation Oncologist, Dr. Guzmán, whose office will contact the patient. DISCHARGE MEDICATIONS: 1. Alprazolam 0.5 mg q.4 hours p.r.n. 2. Buspirone 10 mg p.o. t.i.d. 3. Dexamethasone 2 mg p.o. q.24h. for 3 more days, to be completed on 2016. 4. Famotidine 20 mg p.o. b.i.d., though this can likely be discontinued when he is no longer taking the dexamethasone. 5. Gabapentin 300 mg p.o. t.i.d. 6. Levetiracetam 750 mg p.o. b.i.d. until followup with Neurosurgery. 7. Oxycodone/acetaminophen 1-2 tabs p.o. q.4h. p.r.n. 8. Propranolol 10 mg p.o. t.i.d. 9. Trazodone 50 mg p.o. q.h.s. ISSUES TO BE ADDRESSED AT FOLLOWUP: 1. Dysarthria. He will have outpatient speech and language pathology. 2. Craniotomy and glioblastoma multiforme followup with Neurosurgery, Oncology , and Radiation Oncology. 3. Anxiety and insomnia. He can continue buspirone, alprazolam, and trazodone , and he can follow up with his primary care provider. /[id number]/MODL MTDD
[2016-08-17] MEDS ORDERED: POLYETHYLENE GLYCOL 3350 17 GM PKT PO SCH (09:00)
== END 2016-08-16 16:35 | disposition home health service (06) | DRG 949 ==
LOC: BREH 16:05
PROVIDERS: ADMIT Internal Medicine; ATTEND Internal Medicine
DX: Z48.3 Aftercare following surgery for neoplasm (principal); G81.91 Hemiplegia, unspecified affecting right dominant side; C71.1 Malignant neoplasm of frontal lobe; I10 Essential (primary) hypertension; G62.9 Polyneuropathy, unspecified; R47.1 Dysarthria and anarthria; R63.4 Abnormal weight loss; K59.03 Drug induced constipation; F41.9 Anxiety disorder, unspecified; R13.12 Dysphagia, oropharyngeal phase; R41.89 Other symptoms and signs involving cognitive functions and awareness; R41.844 Frontal lobe and executive function deficit; G47.00 Insomnia, unspecified; E86.0 Dehydration
CPT/HCPCS: 92507-GN; 92522-GN; 92610-GN; 97110-GO; 97110-GP; 97116-GP; 97162-GP; 97166-GO; 97535-GO; G0009